=== PATIENT | female | born 1990 | race Caucasian/White ===

== ENCOUNTER 2020-12-29 15:15 | Outpatient (CLI) | payer OTHER, SELFPAY ==
--- NOTE | ~2020-12-29 | US_ITS ---
EXAMINATION: US pelvic complete w TV DATE: 12/29/2020 15:56 INDICATION: Uncertain location of IUD TECHNIQUE: Multiple transabdominal and endovaginal sonographic images of the pelvis were obtained. COMPARISON: None. FINDINGS: The uterus measures 7.4 x 3.7 x 5.5 cm. The IUD is in expected position. The endometrial co mplex measures 4 mm. The right ovary measures 2.0 x 0.9 x 0.7 cm. The left ovary measures 2.8 x 2.6 x 3.0 cm. There is normal vascular flow in the ovaries. There is no free fluid in the pelvis. IMPRESSION: 1. IUD in expected position. Reviewed, dictated and finalized at location A.
== END 2020-12-29 15:16 | disposition home or self-care (01) ==
PROVIDERS: Visit Provider Obstetrics & Gynecology
DX: Z30.431 Encounter for routine checking of intrauterine contraceptive device (principal)
CPT/HCPCS: 76830; 76856

== ENCOUNTER 2022-12-31 11:44 | Emergency (ER) | payer OTHER, SELFPAY ==
--- NOTE | ~2022-12-31 | XR_ITS ---
EXAMINATION: XR hand LT min 3V DATE: 12/31/2022 12:39 INDICATION: Left hand injury and pain. TECHNIQUE: 3 views of left hand were obtained. COMPARISON: None. FINDINGS: Bone alignment is normal. No fracture. Joint spaces are well maintained. IMPRESSION: 1. No fracture. Reviewed, dictated and finalized at location A. IMPRESSION: 1. No fracture.
[2022-12-31 12:16] VITALS: BP 124/74; PULSE 98; RESP 18; TEMP 36.5; O2SAT 100
--- NOTE | 2022-12-31 13:58 | PC.NURSE ---
Pt no longer wants to be seen by EDP due to wait time.
== END 2022-12-31 14:49 | disposition left against medical advice (07) ==
LOC: ANHED 14:06
PROVIDERS: Emergency Provider Emergency Medicine
DX: M79.642 Pain in left hand (principal)
CPT/HCPCS: 73130; 99199

== ENCOUNTER 2023-03-14 02:14 | Day surgery (SDC) | payer OTHER, SELFPAY ==
[2023-03-06 15:06] VITALS: BMI 24.7
--- NOTE | 2023-03-06 15:12 | PC.NURSE ---
Report to the Outpatient Waiting Room, entrance under the green pavilion located off [facility], at time 0900 on date 03/14/23. Planned Procedure Time: 1100. Time changes happen often and if your time is changed the preop area will call you the afternoon before. - You and your visitor will be asked to self-screen and do not enter if you have any COVID symptoms. - A mask is optional within the hospital at this time. Patients may have clear liquids (water, carbonated beverages, clear teas, apple juice) until 3 hours prior to surgery with a maximum of 20 ounces. - No food from midnight until time of surgery Take the following medications with a SIP of water the morning of surgery: SERTRALINE DO NOT STOP ANY OF YOUR OTHER PRESCRIPTION MEDICATIONS PRIOR TO SURGERY ?EXCEPT THE FOLLOWING Medications to discontinue per physician: N/A Date to take last dose: N/A Please no make-up, nail hebrew, hairspray, perfume, deodorant, or body powder the day of surgery. No jewelry (including any body piercings) or valuables the day of surgery, leave them at home. Please take a shower or bath the night before, or the morning of, surgery with an antibacterial soap. Wear comfortable, loose fitting clothing. - Jewelry must be removed prior to entering the operating room. Rings and piercings that are not removed may be cut off. - The hospital will not accept responsibility for valuables. - Please leave all valuables, including medications, at home the day of surgery. If you are going home after surgery, a licensed spike driver must drive you home. - NO public transportation without another adult if you receive anesthesia. - We recommend that an adult stay with you for 24 hours following discharge. - We also recommend that you do not drive, make important decision, drink alcoholic beverages, or take any drugs that were not prescribed by your health care provider for at least 24 hours after your discharge time. Follow any additional instructions given to you from your surgeon. If you or anyone in your household have experienced Covid symptoms in the past week, please notify your surgeon or the nurse liaison at the phone number below for possible testing. Telephone instructions given to PT - RK PEDERSON and asked if any additional questions and then verbalized understanding. Patient advised to call surgeon office or pre surgery nurse liaison [phone] if any additional questions.
--- NOTE | 2023-03-12 17:20 | PM.IMHP ---
H&P: HPI History of Present Illness Date/Time: 03/12/23 17:20 32-year-old female presents for LEEP conization. Over 20 years ago had abnormal Pap which LEEP resolved and her Pap smears have been normal since that time. Last year ascus questionable high-grade lesion, colposcopy did not confirm an ECC was negative. This year Pap does show high-grade lesion therefore will proceed with LEEP. Chief Complaint: HGSIL on Pap Review of Systems Review of Systems: All systems reviewed & are unremarkable except as noted in HPI and below PMFSH Past Medical History Medical History Abnormal Pap smear of cervix 01/13/2009-lgsil (+) hpv, 01/26/2010-LGSIL+HPV, 08/30/2010 Lgsil +hpv,10/22/2011- LGSIL, 09/24/2012 HGSIL Moderate dyplasia+hpv Anxiety and depression ASCUS with positive high risk HPV cervical History of anxiety History of depression HPV in female Irregular periods Migraines Overactive bladder Surgical History Surgical History H/O LEEP LEEP, dx laparoscopy-pelvic pain - Hsgil IVY 3 - HGSIL IVY 2 History of appendectomy History of colposcopy multiple HGSIL/ Mild dysplasia IVY 1 History of colposcopy (04/04/22) Hx of cholecystectomy Family History Family History Mother Hypertension Grandparent Family history of congestive heart failure Diabetes mellitus Social History Social History Smoking status: Current every day smoker Tobacco type: e-cigarettes/vaping Alcohol intake: former Drinks per week: 1 Alcohol use details: A FEW TIMES A WEEK, RECENTLY QUIT Substance use: current Substance use type: marijuana Other substance usage details: daily Current Housing: Decline to Answer Concerned About Future Housing: Decline to Answer Difficulty Paying Gas/Electric Bills: Decline to Answer Difficulty Paying for Meds: Decline to Answer Currently Unemployed: Decline to Answer Education: Decline to Answer Difficulty w/ Childcare or Family Care: Decline to Answer Living arrangements: with family Additional living arrangements comments: CHILDREN Occupation/Education: occupation 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 Gender identity (if verbalized by the patient): Female Sexual Orientation (if Verbalized by the Patient): Straight or Heterosexual Spiritual care concerns: No Meds Home Medications and Allergies Home Medications Medication Instructions Recorded Confirmed Type levonorgestrel 21 mcg/24 hours (8 1 device intrauterine ONCE 02/21/22 03/06/23 History yrs) 52 mg intrauterine device (Mirena) sertraline 100 mg tablet 100 mg PO DAILY 02/21/22 03/06/23 History Allergies Allergy/AdvReac Type Severity Reaction Status Date / Time No Known Allergies Allergy Verified 03/06/23 15:06 Exam Const: General: cooperative and healthy appearing Resp: Effort & Inspection: normal respiratory effort Auscultation: clear to auscultation bilaterally Cardio: Rate: regular rate Rhythm: regular rhythm GI: Inspection: normal to inspection Auscultation: normal bowel sounds : External Female Exam: normal external appearance Speculum Exam - Vagina: normal appearance of the vagina Speculum Exam - Cervix: abnormal appearance of the cervix ( transformation zone retracted) Bimanual exam- vagina & uterus: normal bimanual exam Bimanual Exam- Adnexa, other: normal adnexae Assessment and Plan Assessment and plan (1) HGSIL (high grade squamous intraepithelial lesion) on Pap smear of cervix: Code(s): R87.613 - High grade squamous intraepithelial lesion on cytologic smear of cervix (HGSIL) Status: Acute Plan proceed with LEEP conization
--- NOTE | 2023-03-13 14:30 | WPDANESEPPF ---
Anes - Initial Pre Proc Eval Procedure: Operation Date: 03/14/23 11:00 Proposed Procedures p Loop Electrical Excision Procedure - Leonard Andres MD Date/Time: 03/13/23 14:30 Surgeon: Leonard Andres MD Pre Op Diagnosis: Cervical Dysplasia Patient Data Age: 32 Gender: F Height: 1.57 m Weight: 61.25 kg Allergies Allergy/AdvReac Type Severity Reaction Status Date / Time No Known Allergies Allergy Verified 03/06/23 15:06 Home Medications Medication Instructions Recorded Confirmed Type levonorgestrel 21 mcg/24 hours (8 1 device intrauterine ONCE 02/21/22 03/06/23 History yrs) 52 mg intrauterine device (Mirena) sertraline 100 mg tablet 100 mg PO DAILY 02/21/22 03/06/23 History Patient hx anesthesia problems: none Family hx anesthesia problems: none Results Review: All pre-operative results and documents have been reviewed as part of the pre-operative evaluation. [facility] Past Medical History Medical History Abnormal Pap smear of cervix 01/13/2009-lgsil (+) hpv, 01/26/2010-LGSIL+HPV, 08/30/2010 Lgsil +hpv,10/22/2011- LGSIL, 09/24/2012 HGSIL Moderate dyplasia+hpv Anxiety and depression ASCUS with positive high risk HPV cervical History of anxiety History of depression HPV in female Irregular periods Migraines Overactive bladder Surgical History Surgical History H/O LEEP LEEP, dx laparoscopy-pelvic pain - Hsgil IVY 3 - HGSIL IVY 2 History of appendectomy History of colposcopy multiple HGSIL/ Mild dysplasia IVY 1 History of colposcopy (04/04/22) Hx of cholecystectomy Family History Family History Mother Hypertension Grandparent Family history of congestive heart failure Diabetes mellitus Social History Social History Smoking status: Current every day smoker Tobacco type: e-cigarettes/vaping Alcohol intake: former Drinks per week: 1 Alcohol use details: A FEW TIMES A WEEK, RECENTLY QUIT Substance use: current Substance use type: marijuana Other substance usage details: daily Current Housing: Decline to Answer Concerned About Future Housing: Decline to Answer Difficulty Paying Gas/Electric Bills: Decline to Answer Difficulty Paying for Meds: Decline to Answer Currently Unemployed: Decline to Answer Education: Decline to Answer Difficulty w/ Childcare or Family Care: Decline to Answer Living arrangements: with family Additional living arrangements comments: CHILDREN Occupation/Education: occupation 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 Gender identity (if verbalized by the patient): Female Sexual Orientation (if Verbalized by the Patient): Straight or Heterosexual Spiritual care concerns: No Anes - Eval Final PreProcedure Day of Procedure 03/13/23 14:30 Patient weight: normal Heart: regular rate and rhythm Lungs: clear to auscultation and normal air movement Airway: Mallampati scale class II Neurological: alert and oriented Last oral intake: >/= 8 hours ASA classification: III Emergent: no Anesthetic plan: proceed Anesthesia type and monitoring: general GIVS and standard monitoring Results Review: All pre-operative results and documents have been reviewed as part of the pre-operative evaluation. Informed Consent: The patient's anesthetic plan and its attendant risks and benefits were discussed with the patient/family/POA. Questions were solicited and answers provided to the satisfaction of the patient/family/POA.
--- NOTE | 2023-03-14 08:29 | WPDHPUPDATE1 ---
History and Physical Update Update Date/Time: 03/14/23 08:29 History and Physical has been reviewed, including an updated exam of the patient. There are NO changes in the patient's condition. Risks, benefits, and alternatives have been discussed and questions answered. Patient agrees to proceed with procedure.
[2023-03-14 09:24] VITALS: BP 105/69; PULSE 74; RESP 16; TEMP 37.2; O2SAT 100
[2023-03-14] MEDS: ACETAMINOPHEN 500 MG TABLET 1000 MG PO (09:58)
[2023-03-14] MEDS: LACTATED RINGERS 1,000 ML 30 ML IV CONT (10:00)
[2023-03-14 10:19] LABS: Hemoglobin 13.6 g/dL (12.0-15.0); Mean Corpuscular HGB Conc 32.4 g/dl (32-36); Mean Corpuscular Hemoglobin 30.1 pg (26-34); Mean Corpuscular Volume 92.9 fl (80-100); Mean Platelet Volume 11.6 fl (7.4-10.4); Platelet Count Result 344 k/mm3 (150-375); Red Blood Count 4.52 M/mm3 (4.2-5.4); Red Cell Distribution Width 11.8 % (11.5-14.5)
--- NOTE | 2023-03-14 11:22 | W.PM.PROC2 ---
Procedure Note - Detailed Date of Procedure 03/14/23 Pre-op Diagnosis 1. HGSIL 2. Prior LEEP Post-op Diagnosis Same Procedure Performed LEEP Surgeon Leonard Andres MD Anesthesia MAC Findings Retracted transformation zone Description of Procedure Patient prepped and draped in usual manner for this procedure. Lugol's solution was used to delineate the transformation zone, and this was poorly done as it was retracted. Medium LEEP instrument was obtained an ectocervical portion of our specimen was removed. Endocervical specimen then removed with good hemostasis. Further cautery to be certain there was no further bleeding was undertaken. At this point the procedure was considered terminated and the patient was sent to recovery room in stable condition Estimated Blood Loss 20 Drains No Packing No Pathology Yes Complications No immediate complications Condition Stable Disposition PACU [facility] Billing Surgery - Charge Forward: Surgery Billing
[2023-03-14 11:30] VITALS: BP 88/53; PULSE 84; RESP 13; O2SAT 97
[2023-03-14 12:00] VITALS: BP 110/70; PULSE 60; RESP 12; O2SAT 99
[2023-03-14] MEDS: fentaNYL CITRATE INJ (*CRX) 100 MCG/2 ML VIAL 25 MCG IV PUSH ×2 (12:00→12:03)
[2023-03-14 12:15] VITALS: BP 100/58; PULSE 48; RESP 12
[2023-03-14 12:45] VITALS: BP 111/60; PULSE 48; RESP 20
== END 2023-03-14 12:54 | disposition home or self-care (01) ==
PROVIDERS: Visit Provider Obstetrics & Gynecology
PROC: 0UBC7ZZ Excision of Cervix, Via Natural or Artificial Opening (ICD-10-PCS; CPT 57522; principal; 2023-03-14 11:00)
DX: R87.613 High grade squamous intraepithelial lesion on cytologic smear of cervix (HGSIL) (principal); R87.810 Cervical high risk human papillomavirus (HPV) DNA test positive; F41.8 Other specified anxiety disorders; F17.290 Nicotine dependence, other tobacco product, uncomplicated; F12.90 Cannabis use, unspecified, uncomplicated
CPT/HCPCS: 57522; 36415; 85027; 88307; A9270; J1100; J2250; J2405; J2704; J3010; J7120

== ENCOUNTER 2023-03-27 12:53 | Day surgery (SDC) | payer OTHER, SELFPAY ==
[2023-03-27] VITALS (10 sets, daily range): BP systolic 95–117; BP diastolic 58–85; PULSE 62–90; RESP 10–19; TEMP 36.2–36.8; O2SAT 95–100
--- NOTE | 2023-03-27 13:20 | ED.GENADULT ---
HPI - General Adult General Chief complaint: Vaginal Bleeding Stated complaint: leep proc 03/14- now bleeding Time Seen by Provider: 03/27/23 13:00 History of Present Illness HPI narrative: 32-year-old female present to ED for evaluation for vaginal bleeding. Patient had a biopsy 03/14 and just noticed vaginal bleeding with large clots that started approximately 30 to 40 minutes prior to arrival. Patient called [facility] office and she was referred to the emergency department. Related Data Home Medications Medication Instructions Recorded Confirmed levonorgestrel 21 mcg/24 hours (8 1 device intrauterine ONCE 02/21/22 03/14/23 yrs) 52 mg intrauterine device (Mirena) sertraline 100 mg tablet 100 mg PO DAILY 02/21/22 03/14/23 Allergies Allergy/AdvReac Type Severity Reaction Status Date / Time No Known Allergies Allergy Verified 03/27/23 17:56 Review of Systems Review of Systems: All systems reviewed & are unremarkable except as noted in HPI and below PMFSH Past Medical History Medical History Abnormal Pap smear of cervix 01/13/2009-lgsil (+) hpv, 01/26/2010-LGSIL+HPV, 08/30/2010 Lgsil +hpv,10/22/2011- LGSIL, 09/24/2012 HGSIL Moderate dyplasia+hpv Anxiety and depression ASCUS with positive high risk HPV cervical History of anxiety History of depression HPV in female Irregular periods Migraines Overactive bladder Surgical History Surgical History H/O LEEP LEEP, dx laparoscopy-pelvic pain - Hsgil IVY 3 - HGSIL IVY 2 History of appendectomy History of colposcopy multiple HGSIL/ Mild dysplasia IVY 1 History of colposcopy (04/04/22) Hx of cholecystectomy Family History Family History Mother Hypertension Grandparent Family history of congestive heart failure Diabetes mellitus Social History Social History Smoking status: Current every day smoker Tobacco type: e-cigarettes/vaping Alcohol intake: former Drinks per week: 1 Alcohol use details: A FEW TIMES A WEEK, RECENTLY QUIT Substance use: current Substance use type: marijuana Other substance usage details: daily Current Housing: Decline to Answer Concerned About Future Housing: Decline to Answer Difficulty Paying Gas/Electric Bills: Decline to Answer Difficulty Paying for Meds: Decline to Answer Currently Unemployed: Decline to Answer Education: Decline to Answer Difficulty w/ Childcare or Family Care: Decline to Answer Living arrangements: with family Additional living arrangements comments: CHILDREN Occupation/Education: occupation 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 HEAD: normocephalic, atraumatic. EYES: PERRLA/EOMI, conjunctivae clear. NOSE: Normal no drainage NECK: Supple. No adenopathy, no masses. RESPIRATORY: Airway patent, respirations nonlabored. Clear to auscultation bilaterally, no rales, rhonchi, wheezing. CARDIOVASCULAR: Regular rate and rhythm without murmurs rubs or gallops. ABDOMINAL: Soft, nontender, nondistended, normal bowel sounds Pelvic exam: Patient did have refilling of the vaginal vault after clearing out clots. MUSCULOSKELETAL: Moves all extremities. Strength/ROM intact, No edema, No calf tenderness. NEURO: Alert. Cranial nerves II through XII intact. Good gait. Good coordination SKIN: Warm, dry. Normal Color Course Course Emergency Course: 32-year-old female presented ED for evaluation of vaginal bleeding that began worsening 30 to 40 minutes prior to arrival. Patient states since the bleeding began she has pas
[2023-03-27] MEDS: HYDROmorphone HCL INJ (*CRX) 1 MG/ML SYR 0.5 MG IV PUSH ×2 (13:58→16:59)
[2023-03-27] MEDS: SODIUM CHLORIDE 0.9% IV 1,000 ML 999 ML IV CONT (13:58)
[2023-03-27 14:01] LABS: Basophils Percent Auto 0.3 % (0.2-1.2); Eosinophils Absolute Auto 0.1 K/mm3 (0-0.3); Eosinophils Percent Auto 0.8 % (0-4.4); Hematocrit 39.7 % (37.0-47.0); Hemoglobin 13.1 g/dL (12.0-15.0); Immature Granulocyte Absolute 0.05 K/mm3 (0.00-0.031); Immature Granulocyte Percent A 0.4 % (0-0.5); Lymphocytes Absolute Auto 2.27 K/mm3 (0.9-3.2); Lymphocytes Percent Auto 17.4 % (18.3-44.2); Mean Corpuscular Volume 91.1 fl (80-100); Mean Platelet Volume 11.9 fl (7.4-10.4); Monocytes Absolute Auto 0.5 K/mm3 (0.1-0.6); Neutrophils Absolute Auto 10.1 K/mm3 (1.3-6.7); Neutrophils Percent Auto 77.1 % (45.5-73.1); Platelet Count Result 371 k/mm3 (150-375); Red Blood Count 4.36 M/mm3 (4.2-5.4); Red Cell Distribution Width 11.7 % (11.5-14.5); White Blood Count 13.1 K/mm3 (4.5-10.0)
[2023-03-27 14:09] LABS: Alanine Aminotransferase 96 U/L (6-35); Albumin Level 4.2 g/dL (3.5-5.1); Alkaline Phosphatase 73 U/L (38-126); Anion Gap 5 mmol/L (8-16); Aspartate Amino Transferase 49 U/L (14-36); Bilirubin,Total 0.7 mg/dL (0.2-1.3); Blood Urea Nitrogen 8 mg/dL (7-17); Calcium 8.7 mg/dL (8.4-10.2); Carbon Dioxide 26 mmol/L (22-30); Chloride 105 mmol/L (98-107); Estimated CRCL calculation 70 ml/min; Estimated Glomerular Filt Rate > 60; Glucose 76 mg/dL (65-110); Potassium 3.4 mmol/L (3.4-5.0); Prothrombin Time 13.3 Seconds (11.1-14.7); Sodium 136 mmol/L (137-145)
[2023-03-27 14:10] LABS: Partial Thromboplastin Time 31.9 SECONDS (22.3-36.8)
--- NOTE | 2023-03-27 14:33 | WPDCN ---
Assessment and Plan Assessment and plan (1) Vaginal bleeding: Code(s): N93.9 - Abnormal uterine and vaginal bleeding, unspecified Status: Acute Assessment and Plan: 32-year-old female who presents to the emergency room with acute onset vaginal bleeding Patient reports retractable vaginal bleeding since this morning Patient underwent LEEP procedure for surgical dysplasia on 03/14/2023 Vaginal exam shows brisk bleeding from the cervical LEEP surgical bed Vaginal vault cleared of clot Silver nitrate and Monsel solution applied to the surgical bed for hemostasis Will admit star 1 g IV TXA Will continue to monitor bleeding If bleeding persists, will consider cautery under anesthesia for management of acute vaginal bleeding HPI Data of Consult Date/Time: 03/27/23 14:33 Primary Care Provider: PHYSICIAN NOT ON STAFF Consult Narrative Reason for consult: Vaginal bleeding Narrative: Marce Guido is a 32 year old female presents to the ER this morning for acute onset vaginal bleeding. Patient underwent a LEEP procedure approximately 2 weeks ago. Patient reported some cramping postop but denied any bleeding. Patient states this morning she was sitting in the truck when she had acute onset bleeding. Patient states she has had persistent bleeding since it started. Patient states she soaking through clothing and pads in the emergency room. Patient reports continued cramping pain. Patient states she has an IUD in place. Patient states she reports mostly amenorrhea but will have occasional light menses. Patient reports last menstrual bleeding was 2 weeks ago. Urine test is negative. Patient has not had any intercourse since her LEEP procedure. Review of Systems Review of Systems: All systems reviewed & are unremarkable except as noted in HPI and below PMFSH Past Medical History Medical History Abnormal Pap smear of cervix 01/13/2009-lgsil (+) hpv, 01/26/2010-LGSIL+HPV, 08/30/2010 Lgsil +hpv,10/22/2011- LGSIL, 09/24/2012 HGSIL Moderate dyplasia+hpv Anxiety and depression ASCUS with positive high risk HPV cervical History of anxiety History of depression HPV in female Irregular periods Migraines Overactive bladder Surgical History Surgical History H/O LEEP LEEP, dx laparoscopy-pelvic pain - Hsgil IVY 3 - HGSIL IVY 2 History of appendectomy History of colposcopy multiple HGSIL/ Mild dysplasia IVY 1 History of colposcopy (04/04/22) Hx of cholecystectomy Family History Family History Mother Hypertension Grandparent Family history of congestive heart failure Diabetes mellitus Social History Social History Smoking status: Current every day smoker Tobacco type: e-cigarettes/vaping Alcohol intake: former Drinks per week: 1 Alcohol use details: A FEW TIMES A WEEK, RECENTLY QUIT Substance use: current Substance use type: marijuana Other substance usage details: daily Current Housing: Decline to Answer Concerned About Future Housing: Decline to Answer Difficulty Paying Gas/Electric Bills: Decline to Answer Difficulty Paying for Meds: Decline to Answer Currently Unemployed: Decline to Answer Education: Decline to Answer Difficulty w/ Childcare or Family Care: Decline to Answer Living arrangements: with family Additional living arrangements comments: CHILDREN Occupation/Education: occupation 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
[2023-03-27] MEDS: TRANEXAMIC ACID 1,000 MG/10 ML AMPUL 1000 MG (14:53)
[2023-03-27] MEDS: SODIUM CHLORIDE 0.9% IV 50 ML 100 ML (15:02)
--- NOTE | 2023-03-27 17:01 | PM.IMHP ---
H&P: HPI History of Present Illness Date/Time: 03/27/23 17:01 Chief Complaint: vaginal bleeding Narrative: Marce Guido is a 32 year old female? presents to the ER this morning for acute onset vaginal bleeding.? Patient underwent a LEEP procedure approximately 2 weeks ago.? Patient reported some cramping postop but denied any bleeding.? Patient states this morning she was sitting in the truck when she had acute onset bleeding.? Patient states she has had persistent bleeding since it started.? Patient states she soaking through clothing and pads in the emergency room.? Patient reports continued cramping pain.? Patient states she has an IUD in place.? Patient states she reports mostly amenorrhea but will have occasional light menses.? Patient reports last menstrual bleeding was 2 weeks ago.? Urine test is negative.? Patient has not had any intercourse since her LEEP procedure. Review of Systems Cardiovascular: Cardiovascular: Denies chest pain, Denies leg edema, Denies palpitations, Denies dyspnea and Denies dyspnea on exertion Respiratory: Respiratory: Denies cough, Denies dyspnea and Denies dyspnea on exertion Gastrointestinal: Gastrointestinal: Denies abdominal pain, Denies constipation, Denies diarrhea, Denies nausea and Denies vomiting Genitourinary: Genitourinary: Denies hematuria, Denies urinary frequency, Denies dysuria, Denies pelvic pain, Denies urinary incontinence and Denies vaginal discharge Neurologic: Reports system reviewed and no additional complaints, except as documented Psychiatric: Psychiatric: Reports no additional psychiatric complaints Endocrine: Endocrine: Denies palpitations PMFSH Past Medical History Medical History Abnormal Pap smear of cervix 01/13/2009-lgsil (+) hpv, 01/26/2010-LGSIL+HPV, 08/30/2010 Lgsil +hpv,10/22/2011- LGSIL, 09/24/2012 HGSIL Moderate dyplasia+hpv Anxiety and depression ASCUS with positive high risk HPV cervical History of anxiety History of depression HPV in female Irregular periods Migraines Overactive bladder Surgical History Surgical History H/O LEEP LEEP, dx laparoscopy-pelvic pain - Hsgil IVY 3 - HGSIL IVY 2 History of appendectomy History of colposcopy multiple HGSIL/ Mild dysplasia IVY 1 History of colposcopy (04/04/22) Hx of cholecystectomy Family History Family History Mother Hypertension Grandparent Family history of congestive heart failure Diabetes mellitus Social History Social History Smoking status: Current every day smoker Tobacco type: e-cigarettes/vaping Alcohol intake: former Drinks per week: 1 Alcohol use details: A FEW TIMES A WEEK, RECENTLY QUIT Substance use: current Substance use type: marijuana Other substance usage details: daily Current Housing: Decline to Answer Concerned About Future Housing: Decline to Answer Difficulty Paying Gas/Electric Bills: Decline to Answer Difficulty Paying for Meds: Decline to Answer Currently Unemployed: Decline to Answer Education: Decline to Answer Difficulty w/ Childcare or Family Care: Decline to Answer Living arrangements: with family Additional living arrangements comments: CHILDREN Occupation/Education: occupation 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
[2023-03-27] MEDS: LACTATED RINGERS 1,000 ML 30 ML IV CONT (17:20)
--- NOTE | 2023-03-27 17:44 | WPDANESEPPF ---
Anes - Initial Pre Proc Eval Procedure: Operation Date: 03/27/23 18:00 Proposed Procedures p Cautery Of Vaginal Lesion - John Lincoln MD Date/Time: 03/27/23 17:44 Surgeon: John Lincoln MD Pre Op Diagnosis: leep proc 03/14- now bleeding Patient Data Age: 32 Gender: F Height: 1.57 m Weight: 61.24 kg Last Vital Signs Temp 36.6 C 03/27/23 12:55 Pulse 70 03/27/23 16:55 Resp 16 03/27/23 16:55 BP 98/61 L 03/27/23 16:55 Pulse Ox 100 03/27/23 16:55 O2 Del Method Room Air 03/27/23 12:55 Allergies Allergy/AdvReac Type Severity Reaction Status Date / Time No Known Allergies Allergy Verified 03/14/23 10:48 Home Medications Medication Instructions Recorded Confirmed Type levonorgestrel 21 mcg/24 hours (8 1 device intrauterine ONCE 02/21/22 03/14/23 History yrs) 52 mg intrauterine device (Mirena) sertraline 100 mg tablet 100 mg PO DAILY 02/21/22 03/14/23 History ibuprofen 800 mg tablet 800 mg PO TID PRN pain #30 tabs 03/14/23 Rx oxycodone-acetaminophen 5 mg-325 1 tablet PO Q6H PRN pain #10 tabs 03/14/23 Rx mg tablet Laboratory Tests 03/27/23 13:50 WBC 13.1 H K/mm3 (4.5-10.0) RBC 4.36 M/mm3 (4.2-5.4) Hgb 13.1 g/dL (12.0-15.0) Hct 39.7 % (37.0-47.0) MCV 91.1 fl (80-100) MCH 30.0 pg (26-34) MCHC 33.0 g/dl (32-36) RDW 11.7 % (11.5-14.5) Plt Count 371 k/mm3 (150-375) MPV 11.9 H fl (7.4-10.4) Immature Gran % (Auto) 0.4 % (0-0.5) Neut % (Auto) 77.1 H % (45.5-73.1) Lymph % (Auto) 17.4 L % (18.3-44.2) [place] % (Auto) 4.0 % (2.6-8.5) Eos % (Auto) 0.8 % (0-4.4) Baso % (Auto) 0.3 % (0.2-1.2) Lymph # (Auto) 2.27 K/mm3 (0.9-3.2) [place] # (Auto) 0.5 K/mm3 (0.1-0.6) Eos # (Auto) 0.1 K/mm3 (0-0.3) Baso # (Auto) 0.0 K/mm3 (0.0-0.1) Abs Immat Gran (auto) 0.05 H K/mm3 (0.00-0.031) Absolute Neuts (auto) 10.1 H K/mm3 (1.3-6.7) Absolute Nucleated RBC 0.0 K/mm3 (0.0-0.012) Nucleated RBC % 0.0 % (0.0-0.2) PT 13.3 Seconds (11.1-14.7) INR 1.0 APTT 31.9 SECONDS (22.3-36.8) Sodium 136 L mmol/L (137-145) Potassium 3.4 mmol/L (3.4-5.0) Chloride 105 mmol/L (98-107) Carbon Dioxide 26 mmol/L (22-30) Anion Gap 5 L mmol/L (8-16) BUN 8 mg/dL (7-17) Creatinine 0.80 mg/dL (0.7-1.0) Estim Creat Clear Calc 70 ml/min Estimated GFR > 60 (59 - ) Glucose 76 mg/dL (65-110) Calcium 8.7 mg/dL (8.4-10.2) Total Bilirubin 0.7 mg/dL (0.2-1.3) AST 49 H U/L (14-36) ALT 96 H U/L (6-35) Alkaline Phosphatase 73 U/L (38-126) Total Protein 7.0 g/dL (6.3-8.2) Albumin 4.2 g/dL (3.5-5.1) Blood Type O Positive Antibody Screen Negative Patient hx anesthesia problems: none Family hx anesthesia problems: none Results Review: All pre-operative results and documents have been reviewed as part of the pre-operative evaluation. [facility] Past Medical History Medical History Abnormal Pap smear of cervix 01/13/2009-lgsil (+) hpv, 01/26/2010-LGSIL+HPV, 08/30/2010 Lgsil +hpv,10/22/2011- LGSIL, 09/24/2012 HGSIL Moderate dyplasia+hpv Anxiety and depression ASCUS with positive high risk HPV cervical History of anxiety History of depression HPV in female Irregular periods Migraines Overactive bladder Surgical History Surgical History H/O LEEP LEEP, dx laparoscopy-pelvic pain - Hsgil IVY 3 - HGSIL IVY 2 History of appendectomy History of colposcopy multiple HGSIL/ Mild dysplasia IVY 1 History of colposcopy (04/04/22) Hx of cholecystectomy Family History Family History Mother Hypertension Grandparent Family history of congestive heart failure Diabetes mellitus Social History Social
[2023-03-27] MEDS: FAMOTIDINE 20 MG/2 ML VIAL IV PUSH (17:54)
[2023-03-27] MEDS: ONDANSETRON INJ 4 MG/2 ML VIAL IV PUSH (17:55)
--- NOTE | 2023-03-27 19:04 | SUR.PREOP ---
per RN Sarah pt was unable to void for a test. ok to proceed with surgery due to it being emergent per robson. This nurse changed pt saturated peripad and started a second bag of LR due to the second bag finished.
--- NOTE | 2023-03-27 19:34 | W.PM.PROC2 ---
Procedure Note - Detailed Date of Procedure 03/27/23 Pre-op Diagnosis Vaginal bleeding leep proc 03/14- now bleeding Post-op Diagnosis Same Procedure Performed cauterization of cervical lesion Surgeon John Lincoln MD Anesthesia Other ( IV sedation) Indications vaginal bleeding status post LEEP Findings cervical surgical bed status post LEEP acutely bleeding Description of Procedure PROCEDURE: The patient was taken to the OR and general anesthesia induced. She was prepped and draped in Yellow-fin stirrups with good support of the back and bilateral lower extremities. coated bivalve speculum was placed for visualization of the cervix. Vaginal vault was noted to be full of clot. Blood clots were removed from the vaginal vault. Ball cautery was used throughout the surgical bed. Bovie settings were at 60/60 good hemostasis was obtained with Bovie cautery. Monsel's solution was placed on surgical bed. Surgical site was observed good hemostasis was noted. Procedure was then ended. The patient was taken to the recovery room in stable condition. Estimated Blood Loss 15 Drains No Packing No Pathology None sent Complications No immediate complications Condition Stable Disposition PACU [facility] Billing Surgery - Charge Forward: Surgery Billing
[2023-03-27] MEDS: fentaNYL CITRATE INJ (*CRX) 100 MCG/2 ML VIAL 25 MCG IV PUSH ×6 (19:48→20:24)
--- NOTE | 2023-03-27 20:38 | PC.NURSE ---
Patient transferred to post room #286 via (Stretcher). Support person present. Oriented to unit, room, information board, rooming in, admission packet and security measures. Patient verbalizes understanding.
[2023-03-27] MEDS: HYDROcodone/acetaminophen (*CRX) 5-325 MG TABLET 1 TAB PO (21:16)
[2023-03-27] MEDS: IBUPROFEN 600 MG TABLET PO (21:16)
[2023-03-28 00:20] VITALS: BP 87/51; PULSE 78; RESP 16; TEMP 37; O2SAT 97
[2023-03-28] MEDS: HYDROcodone/acetaminophen (*CRX) 5-325 MG TABLET 1 TAB PO ×3 (00:26→07:27)
[2023-03-28] MEDS: IBUPROFEN 600 MG TABLET PO (04:47)
[2023-03-28 05:00] VITALS: BP 83/51; PULSE 60; RESP 16; TEMP 36.7; O2SAT 100
[2023-03-28 05:48] LABS: Basophils Absolute Auto 0.1 K/mm3 (0.0-0.1); Basophils Percent Auto 0.4 % (0.2-1.2); Eosinophils Absolute Auto 0.2 K/mm3 (0-0.3); Eosinophils Percent Auto 1.1 % (0-4.4); Hematocrit 32.5 % (37.0-47.0); Hemoglobin 10.3 g/dL (12.0-15.0); Immature Granulocyte Absolute 0.05 K/mm3 (0.00-0.031); Immature Granulocyte Percent A 0.4 % (0-0.5); Lymphocytes Absolute Auto 3.18 K/mm3 (0.9-3.2); Lymphocytes Percent Auto 22.8 % (18.3-44.2); Mean Corpuscular HGB Conc 31.7 g/dl (32-36); Mean Corpuscular Hemoglobin 29.9 pg (26-34); Mean Corpuscular Volume 94.5 fl (80-100); Mean Platelet Volume 12.3 fl (7.4-10.4); Monocytes Absolute Auto 0.5 K/mm3 (0.1-0.6); Monocytes Percent Auto 3.7 % (2.6-8.5); Neutrophils Percent Auto 71.6 % (45.5-73.1); Platelet Count Result 319 k/mm3 (150-375); Red Blood Count 3.44 M/mm3 (4.2-5.4); Red Cell Distribution Width 11.7 % (11.5-14.5)
[2023-03-28 07:30] VITALS: BP 90/52; PULSE 72; RESP 16; TEMP 36.7; O2SAT 100
--- NOTE | 2023-03-28 08:14 | PM.DS ---
DS: Admitting Diagnosis Discharge Date 03/28/23 Admitting Diagnosis vaginal bleeding s/p LEEP DS: Discharge Diagnosis Discharge Diagnosis (1) Vaginal bleeding: Code(s): N93.9 - Abnormal uterine and vaginal bleeding, unspecified Status: Acute DS: Summary Hospital Course Hospital Course: a 32 female who presented to the emergency room with acute onset vaginal bleeding. Patient was status post LEEP procedure. vaginal bleeding was refractory to Monsel solution and silver nitrate. Decision was made to proceed to the operating room for cauterization of cervical lesion. Time Spent with Patient Time attestation: Total time spent providing and/or coordinating discharge services: Exam Const: General: cooperative, healthy appearing, comfortable and no acute distress Resp: Effort & Inspection: normal respiratory effort and able to speak in complete sentences Cardio: Rate: regular rate Rhythm: regular rhythm GI: Inspection: normal to inspection GI Palp: No abdominal tenderness and Yes Soft to palpation DS: Data Data Completed and Pending Labs on day of discharge: Labs from last 24 hours 03/28/23 03/27/23 04:32 13:50 WBC 14.0 H 13.1 H RBC 3.44 L 4.36 Hgb 10.3 L 13.1 Hct 32.5 L 39.7 MCV 94.5 91.1 MCH 29.9 30.0 MCHC 31.7 L 33.0 RDW 11.7 11.7 Plt Count 319 371 MPV 12.3 H 11.9 H Immature Gran % (Auto) 0.4 0.4 Neut % (Auto) 71.6 77.1 H Lymph % (Auto) 22.8 17.4 L [place] % (Auto) 3.7 4.0 Eos % (Auto) 1.1 0.8 Baso % (Auto) 0.4 0.3 Lymph # (Auto) 3.18 2.27 [place] # (Auto) 0.5 0.5 Eos # (Auto) 0.2 0.1 Baso # (Auto) 0.1 0.0 Abs Immat Gran (auto) 0.05 H 0.05 H Absolute Neuts (auto) 10.0 H 10.1 H Absolute Nucleated RBC 0.0 0.0 Nucleated RBC % 0.0 0.0 PT 13.3 INR 1.0 APTT 31.9 Sodium 136 L Potassium 3.4 Chloride 105 Carbon Dioxide 26 Anion Gap 5 L BUN 8 Creatinine 0.80 Estim Creat Clear Calc 70 Estimated GFR > 60 Glucose 76 Calcium 8.7 Total Bilirubin 0.7 AST 49 H ALT 96 H Alkaline Phosphatase 73 Total Protein 7.0 Albumin 4.2 Blood Type O Positive Antibody Screen Negative Discharge Plan Discharge Patient Disposition: Home, Self-Care Stand Alone Forms: General Discharge Instructions Follow-up/Referrals: PHYSICIAN NOT ON STAFF,NONSTAFF [Primary Care Provider] - John Lincoln MD [Physician] - Discharge Medications: Continued Mirena 20 mcg/24 hours (7 yrs) 52 mg intrauterine device 1 device intrauterine ONCE Rx Instructions: as a single dose sertraline 100 mg tablet 100 mg PO DAILY oxycodone-acetaminophen 5-325 mg tablet 1 tablet PO Q6H PRN (Reason: pain) Qty: 10 0RF ibuprofen 800 mg tablet 800 mg PO TID PRN (Reason: pain) Qty: 30 0RF
--- NOTE | 2023-03-28 08:46 | WPDANESPN ---
Anes - Prog Note Post-Op Date/Time: 03/28/23 08:46 Cardiovascular status: normal Respiratory status: normal Airway patency: baseline Mental status: baseline Post-Op hydration status: normal Vital Signs: Last Vital Signs Temp 98.1 F 03/28/23 05:00 Pulse 60 03/28/23 05:00 Resp 16 03/28/23 05:00 BP 83/51 L 03/28/23 05:00 Pulse Ox 100 03/28/23 05:00 O2 Del Method Room Air 03/27/23 20:20 O2 Flow Rate 10 03/27/23 19:50 Pain Score (VAS): 0 I/O: Intake & Output 03/27/23 03/28/23 03/28/23 23:59 07:59 15:59 Intake Total 400 Output Total 500 Balance 400 -500 Laboratory Tests 03/28/23 04:32 03/27/23 13:50 03/27/23 03/28/23 13:50 04:32 WBC 13.1 H 14.0 H RBC 4.36 3.44 L Hgb 13.1 10.3 L Hct 39.7 32.5 L MCV 91.1 94.5 MCH 30.0 29.9 MCHC 33.0 31.7 L RDW 11.7 11.7 Plt Count 371 319 MPV 11.9 H 12.3 H Immature Gran % (Auto) 0.4 0.4 Neut % (Auto) 77.1 H 71.6 Lymph % (Auto) 17.4 L 22.8 [place] % (Auto) 4.0 3.7 Eos % (Auto) 0.8 1.1 Baso % (Auto) 0.3 0.4 Lymph # (Auto) 2.27 3.18 [place] # (Auto) 0.5 0.5 Eos # (Auto) 0.1 0.2 Baso # (Auto) 0.0 0.1 Abs Immat Gran (auto) 0.05 H 0.05 H Absolute Neuts (auto) 10.1 H 10.0 H Absolute Nucleated RBC 0.0 0.0 Nucleated RBC % 0.0 0.0 PT 13.3 INR 1.0 APTT 31.9 Sodium 136 L Potassium 3.4 Chloride 105 Carbon Dioxide 26 Anion Gap 5 L BUN 8 Creatinine 0.80 Estim Creat Clear Calc 70 Estimated GFR > 60 Glucose 76 Calcium 8.7 Total Bilirubin 0.7 AST 49 H ALT 96 H Alkaline Phosphatase 73 Total Protein 7.0 Albumin 4.2 Blood Type O Positive Antibody Screen Negative Post-procedural complaints: none Patient Feedback: Patient satisfied with anesthetic care.
--- NOTE | 2023-03-28 10:10 | PC.NURSE ---
1010 Pt given discharge instructions, RN printed LEEP d/c instructions since pt had that procedure on 03/14/23 and post operative bleeding. No discharge instructions available for cervical bleeding. Pt understands.
--- NOTE | 2023-03-28 11:09 | PC.NURSE ---
1050 Pt called and her prescriptions had not been sent to her pharmacy, RN checked and no Rx was sent because the medications just said continued as if she still had the medications. Per pt she had the Ibuprofen and Pioneer from her last procedure on 03/14/23 but was out of them. [address] Andres and he will send in her prescriptions to her preferred pharmacy listed in the computer, [facility] in [place] [facility], RN confirmed pharmacy with pt. RN called pt to let her know.
== END 2023-03-28 10:16 | disposition home or self-care (01) ==
LOC: ANHED 16:46 → ANHSURGERY 16:59 → ANHOB2 20:34
PROVIDERS: Emergency Provider Emergency Medicine; Visit Provider Student in an Organized Health Care Education/Training Program
PROC: (CPT 57510; principal; 2023-03-27 18:00)
DX: N99.820 Postprocedural hemorrhage of a genitourinary system organ or structure following a genitourinary system procedure (principal); Y83.8 Other surgical procedures as the cause of abnormal reaction of the patient, or of later complication, without mention of misadventure at the time of the procedure; F17.290 Nicotine dependence, other tobacco product, uncomplicated; F12.90 Cannabis use, unspecified, uncomplicated; F41.8 Other specified anxiety disorders
CPT/HCPCS: 57510; 36415; 80053; 85025; 85610; 85730; 86850; 86900; 86901; 96361; 96374; 99199; 99285; A9270; J1170; J2250; J2405; J2704; J3010; J7030; J7120

== ENCOUNTER 2023-08-21 18:23 | Emergency (ER) | payer OTHER, SELFPAY ==
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
[2023-08-21 18:32] VITALS: BP 118/76; PULSE 75; RESP 16; TEMP 36.9; O2SAT 100
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
== END 2023-08-21 19:25 | disposition home or self-care (01) ==
PROVIDERS: Emergency Provider Nurse Practitioner
DX: S62.633A Displaced fracture of distal phalanx of left middle finger, initial encounter for closed fracture (principal); F41.9 Anxiety disorder, unspecified; F32.A Depression, unspecified; Z79.899 Other long term (current) drug therapy; F17.290 Nicotine dependence, other tobacco product, uncomplicated; Y04.0XXA Assault by unarmed brawl or fight, initial encounter
CPT/HCPCS: 29130; 73130; 99214; G0463

== ENCOUNTER 2024-09-21 09:00 | Outpatient (CLI) | payer OTHER, SELFPAY ==
--- NOTE | ~2024-09-21 | MMUS_ITS ---
EXAMINATION: MM diagnostic philomena BI w daniele, US breast BI complete HISTORY: Palpable bilateral breast lumps. TECHNIQUE: Additional 3-D tomosynthesis images of the breasts were performed and synthetic 2-D images were generated. CAD analysis was submitted and interpreted. High resolution bilateral complete breas t ultrasound was performed. COMPARISON: None BREAST PARENCHYMAL COMPOSITION: Dense: The breasts are heterogeneously dense, which may obscure small masses FINDINGS: MAMMOGRAPHIC FINDINGS: There are no suspicious masses, calcifications or architectural distortion in either breast to sugges t malignancy. ULTRASOUND: Complete US of all 4 quadrants of the breast/s and retroareolar region was reviewed. Normal heterogen eous echotexture without focal solid or cystic mass. IMPRESSION: 1. No evidence for malignancy in either breast. 2. Routine yearly screening mammogram and regular clinical breast examination are recommended. BI-RADS Category 1: Negative Reviewed, dictated and finalized at location B. NTEER SERVICES MANAGER IMPRESSION: 1. No evidence for malignancy in either breast. 2. Routine yearly screening mammogram and regular clinical breast examination a re recommended. BI-RADS Category 1: Negative
--- OUTSIDE RECORDS SUMMARY | 2024-09-21 09:25 | XMS_ITS | Clinical Summary ---
Author Organization [facility] Address [facility] [place] [address] Care Team Providers Care Fire Coordinator Name Role Phone Unavailable Primary Care Provider Unavailabl e Social History Tobacco Use Types Packs/Day Years Used Date Smoking Tobacco: Never Assessed Comments Unknown Sex and Gender Information Value Date Recorded Sex Assigned at Not on file Legal Sex Female 7:37 PM CDT Gender Identity Not on file Sexual Orientation Not on file Plan of Treatment Health Maintenance Due Date Last Done Comments Cervical Cancer Screening Pa p Smear (Age 30 to 64) Every 3 Years 1991 Annual Physical 12/16/1994 Hepatitis C 12/16/2009 DTaP, Tdap and Td Vaccines ( 1 - Tdap) 12/16/2010 Hepatitis B Vaccines (1 of 3 - 19+ 3-dose series) 12/16/2010 Cervical Cancer Screening Pa p with HPV Testing (Age 30 to 64) Every 5 Years 12/16/2021 Cervical Cancer Screening with HPV 12/16/2021 COVID-19 Vaccine ( - 2023-2 5 season) 2024 Influenza Adult (#1) 2024 HPV Vaccines Aged Out No longer eligi ble based on patient's age to complete this topic Meningococcal B Vaccine Aged Out No l onger eligible based on patient's age to complete this topic Meningococcal Vaccine Aged Out No esteban nadja eligible based on patient's age to complete this topic Pneumococcal Vaccine: Pediat rics (0 to 5 Years) and At-Risk Patients (6 to 64 Years) Aged Out No longer eligible b ased on patient's age to complete this topic RSV Immunizations Under 20 Months Aged Out No longer eligible based on patient's age to complete this topic
--- OUTSIDE RECORDS SUMMARY | 2024-09-21 09:25 | XMS_ITS | Clinical Summary ---
Author Organization [facility] Address [address] [place] [address] Care Team Providers Care Telephone Solicitor Supervisor Name Role Phone Unavailable Primary Care Provider Unavailabl e Source Comments [facility],non-owned Affiliates and Associated Physician Practices is amultiple site organization consisting of ambulatory clinics and hospital sitesin [place], [place], [place] and [place]. This disclosure is being madepursuant to the Care Everywhere program and may not contain all information available regarding this patient. Last updated 18.[facility] [employer] Social History Tobacco Use Types Packs/Day Years Used Date Smoking Tobacco: Never Assessed Sex and Gender Information Value Date Recorded Sex Assigned at Not on file Gender Identity Not on file Sexual Orientation Not on file Plan of Treatment Health Maintenance Due Date Last Done Comments PAP SMEAR 1991 HIV SCREENING 12/16/2006 HEPATITIS C SCREENING 12/12/2009 DTAP/TDAP/TD VACCINES (1 - Tdap) 12/16/2010 HEPATITIS B VACCINE (1 of 3 - 19+ 3-dose series) 12/16/2010 COVID-19 VACCINE ( - 2023-2 5 season) 2024 INFLUENZA VACCINE (#1) 2024 DEPRESSION SCREENING 08/12/2024 ZOSTER VACCINE (1 of 2) 12/16/2041 HIB VACCINE Aged Out No longer eligi ble based on patient's age to complete this topic HPV VACCINE Aged Out No longer eligi ble based on patient's age to complete this topic MENINGOCOCCAL (Group B) VACCINE Aged Out No longer eligible based on patient's age to complete this topic MENINGOCOCCAL VACCINE Aged Out No esteban nadja eligible based on patient's age to complete this topic PNEUMOCOCCAL VACCINE Aged Out No long er eligible based on patient's age to complete this topic
--- OUTSIDE RECORDS SUMMARY | 2024-09-21 09:25 | XMS_ITS | Referral Summary ---
Author Organization [facility] Address [address] [place] [address] Care Team Providers Care Enterprise Resource Planning Consultant Name Role Phone Unavailable Primary Care Provider Unavailabl e Source Comments [facility],non-owned Affiliates and Associated Physician Practices is amultiple site organization consisting of ambulatory clinics and hospital sitesin [place], [place], [place] and [place]. This disclosure is being madepursuant to the Care Everywhere program and may not contain all information available regarding this patient. Last updated 18.[facility] Social History Tobacco Use Types Packs/Day Years Used Date Smoking Tobacco: Never Assessed Sex and Gender Information Value Date Recorded Sex Assigned at Not on file Gender Identity Not on file Sexual Orientation Not on file Plan of Treatment Not on file
--- OUTSIDE RECORDS SUMMARY | 2024-09-21 09:25 | XMS_ITS | Patient Health Summary ---
Author Organization [facility] Address [address] [address] Care Team Providers Care Vacuum Worker Name Role Phone Unavailable Primary Care Provider Unavailabl e Note from [facility],non-owned Affiliates and Associated Physician Practices is amultiple site organization consisting of ambulatory clinics and hospital sitesin [place], [place], [place] and [place]. This disclosure is being madepursuant to the Care Everywhere program and may not contain all information available regarding this patient. Last updated 18.[facility] [employer] Social History Tobacco Use Types Packs/Day Years Used Date Smoking Tobacco: Never Assessed Sex and Gender Information Value Date Recorded Sex Assigned at Not on file Gender Identity Not on file Sexual Orientation Not on file Procedures * XR HAND LEFT 3VW OR MORE(Performed 05/07/2012) Results * XR HAND LEFT 3VW OR MORE (05/07/2012 8:34 AM CDT) Anatomical Region Laterality Modality Wrist / Hand Other Impressions 05/07/2012 1:43 PM CDT Impression: No acute osseous injury. Dictated by Dimas Coffey MD (Resident) I, Dr. Chavarria, have personally reviewed and interpreted this examination/study. Narrative 05/07/2012 1:43 PM CDT Exam: XR HAND LEFT 3+ VW Date: May 07, 2012 8:34:50 AM History: pain Comparison: None available Findings: No acute fracture or dislocation is present. The joint spaces are preserved. There is no soft tissue swelling or joint effusion. Bony mineralization is normal. Procedure Note Dimas Chavarria MD - 11/10/2017 Exam: XR HAND LEFT 3+ VW Date: May 07, 2012 8:34:50 AM History: pain Comparison: None available Findings: No acute fracture or dislocation is present. The joint spaces arepreserved. There is no soft tissue swelling or joint effusion. Bonymineralization is normal. IMPRESSION Impression: No acute osseous injury. Dictated by Dimas Coffey MD (Resident) I, Dr. Chavarria, have personally reviewed and interpreted thisexamination/study. Milton Keller MD DIAGNOSTIC IMAGING O RDERABLES
--- OUTSIDE RECORDS SUMMARY | 2024-09-21 09:25 | XMS_ITS | Clinical Summary ---
Author Organization [address] Address [address] [address] Care Team Providers Care Steam And Power Superintendent Name Role Phone Pamella Harmno Primary Care Provider [phone] [phone] Klever Washington MD Unavailable [phone]- [phone] Allergies No known active allergies Medications levonorgestre L (Mirena) IUD Mirena 20 mcg/24 hours (7 yrs) 52 mg intrauterine device Take 1 device by intrauterine route. Active sertraline (ZOLOFT) 100 mg tabletIndicat ions:Mild episode of recurrent major depressive disorder (HCC),ANN (generalized anxiety disorder) Take 1 tablet (100 mg total) by mouth daily 90 tablet 3 08/31/19 25 Active HYDROcodone-a cetaminophen (NORCO) 5-325 mg per tabletIndicat ions:Pain Take 1 tablet by mouth every 8 (eight) hours as needed for pain 20 tablet 08/27/19 24 025 Discontinued sertraline (ZOLOFT) 100 mg tabletIndicat ions:Mild episode of recurrent major depressive disorder (HCC),ANN (generalized anxiety disorder) Take 1 tablet (100 mg total) by mouth daily 90 tablet 3 09/03/19 24 025 Discontinued(R eorder) loratadine (CLARITIN) 10 mg tabletIndicat ions:Rash Take 1 tablet (10 mg total) by mouth daily 30 tablet 1 01/02/20 24 025 Discontinued Active Problems Problem Noted Date Diagnosed Date Mild episode of recurrent major depressive disor florencio 06/20/2020 Assessment & Plan (08/31/2024 9:34 AM ENDODONTIST): Chronic and uncontrolled. I offered to increase her sertraline. Patient states when she takes a higher dose she has little to no emotion. I offered to add Wellbutrin, patient states this causes suicidal ideations. She has tried other SSRIs in the past, sertraline is the only medication that seems to work for her. I have sent a refill for this. At this time I would strongly recommend she follow-up with psychiatry and a counselor. Handout provided today. Should she experience suicidal ideations she is to report to the ER for evaluation. She voiced understanding. I also offered to place a referral to the [facility] case management social worker to provide assistance with finances and referrals. Patient declined. Assessment & Plan (09/03/2023 9:44 AM ENDODONTIST): Chronic and controlled. Continue Zoloft 100 mg daily. Follow-up as needed. Assessment & Plan (07/17/2022 8:00 AM ENDODONTIST): Chronic. Her PHQ-9 score is elevated. I reviewed this with her today. Patient does not want to change her medication. I offered to add Wellbutrin or BuSpar to her regimen, she declined. She declines counseling. She would like to continue with her current medication and dosage. She denies any suicidal ideation. Will continue Zoloft 100 mg daily. I encouraged her to follow-up if she would like to try different medication or add on another medication. Patient voiced understanding and agreement. All questions answered. Assessment & Plan (11/08/2021 7:56 AM CDT): Chronic and well controlled. Continue Zoloft 100 mg daily. Follow-up with me for any new or changing symptoms. Assessment & Plan (06/20/2020 11:39 AM ENDODONTIST): Chronic and well controlled on Zoloft 100 mg daily. Patient will let me know when she needs a refill. Continue current management. ANN (generalized anxiety disorder) 06/20/2020 Assessment & Plan (08/31/2024 8:46 AM ENDODONTIST): See above. Assessment & Plan (09/03/2023 9:43 AM ENDODONTIST): See above. Assessment & Plan (07/17/2022 7:00 AM ENDODONTIST): See above. Assessment & Plan (11/08/2021 7:33 AM CDT): See above. Assessment & Plan (06/20/2020 11:39 AM ENDODONTIST): See above. Routine adult health maintenance 06/17/2020 Overview (08/31/2024): Health Maintenance: -PCV20: N/A -Tdap vaccine: 2019 -Influenza vaccine: due -Shingles vaccine: N/A -Colonoscopy: N/A -Last WWE: UTD per patient, with BUILDING ASSOCIATE -Last Mammogram: N/A -Last DEXA: N/A -Last eye exam: N/A -Last MHA: N/A Assessment & Plan (08/31/2024 9:33 AM ENDODONTIST): Health Maintenance: -PCV20: N/A -Tdap vaccine: 2019 -Influenza vaccine: due -Shingles vaccine: N/A -Colonoscopy: N/A -Last WWE: UTD per patient, with BUILDING ASSOCIATE -Last Mammogram: N/A -Last DEXA: N/A -Last eye exam: N/A -Last MHA: N/A Recommend annual flu shots. Will request her Pap from BUILDING ASSOCIATE. See me annually for routine physicals. Assessment & Plan (09/03/2023 9:44 AM ENDODONTIST): Health Maintenance: -PCV20: N/A -Tdap vaccine: 2019 -Influenza vaccine: due -Shingles vaccine: N/A -Colonoscopy: N/A -Last WWE: 02/21/22 -Last Mammogram: N/A -Last DEXA: N/A -Last eye exam: N/A -Last MHA: N/A Patient will schedule follow-up with gynecology for repeat Pap smear. Work on healthy diet and exercise habits. Annual labs ordered. See me annually for routine physicals. Assessment & Plan (11/08/2021 7:57 AM CDT): Health Maintenance: -PCV13 vaccine: N/A -PPSV23 vaccine: N/A -Tdap vaccine: 2019 -Influenza vaccine: due -Shingles vaccine: N/A -Colonoscopy: N/A -Last WWE: 2020 -Last Mammogram: N/A -Last DEXA: N/A -Last eye exam: N/A -Last MHA: N/A Patient is up-to-date on health maintenance. Annual screening labs were ordered today. She will be notified of the results. Continue with healthy diet and exercise habits. See me annually for routine physicals. Resolved Problems Problem Noted Date Diagnosed Date Resolved Date Chronic right shoulder pain 11/08/2021 09/02/2023 Assessment & Plan (11/08/2021 7:58 AM CDT): Discussed referral to physical therapy or orthopedics for further evaluation and management. Patient would like to try massage therapy first. If there is no improvement she will follow-up with me in a few months to discuss further management. Continue Flexeril as needed. Continue [id number] medications as needed. Patient voiced agreement with this plan. All questions answered. Cervical intraepithelial neoplasia grade 2 06/20/2020 06/20/2020 BMI 27.0-27.9,adult 06/20/2020 11/09/19 Assessment & Plan (06/20/2020 11:35 AM ENDODONTIST): Reviewed BMI Focus on healthy diet options Work on healthy changes Encounters Date Type Department Care Team Description 08/31/2024 9:00 AM ENDODONTIST Office Visit [facility] Family Medicine [address] [place] [id number] Pamella Harmon PA Routine adult health maintenance (Primary Dx); Mild episode of recurrent major depressive disorder (HCC); ANN (generalized anxiety disorder) from Last 3 Months Immunizations Name Administration Dates Next Due Influenza LAIV (Nasal) 07/17/2022(Deferred: Giana ent Refused) Influenza, Trivalent, IM (MDV) 04/01/2014,2012 Influenza, Trivalent, Preser vative Free, Intramuscular 05/19/2017 Influenza, Trivalent, Split, Preservative Free, Intradermal 08/22/2012 Influenza, Unspecified 05/12/2024(Deferr ed: Patient Refused),05/12/2023(Deferred: Patient Refused),05/12/2022(Deferred: Patient Refused),05/12/2021(Deferred: Patient Refused),05/12/2020(Deferred: Patient Refused) Tdap 02/24/2019,09/25/2017 Surgical History Surgery Date Site/Laterality Comments WISDOM TOOTH EXTRACTION APPENDECTOMY CHOLECYSTECTOMY ABDOMINAL SURGERY LEEP Medical History Medical History Date Comments Hx Other Medical abnormal thyroi d function Depression Anxiety Cervical intraepithelial neoplasia grade 2 2019 Family History Medical History Relation Name Comments Alcohol abuse Father Rodrigo Guzmans Arthritis Father Rodrigo Guzmans COPD Father Rodrigo Guzmans Depression Father Rodrigo Guzmans Drug abuse Father Rodrigo Guzmans Hypertension Father Rodrigo Guzmans Tuberculosis Father Rodrigo Guzmans COPD Maternal Grandfather Amy Roosevans Early Maternal Grandfather Amy Roosevans Hearing loss Maternal Grandfather Sharon Roosevans Heart attack Maternal Grandfather Amy Roosevans Heart disease Maternal Grandfather Sharon Roosevans Rashes / Skin problems Maternal Grandfather Sharon R oosevans Diabetes Maternal Grandmother Haylee Roosevans Heart attack Maternal Grandmother Haylee Roosevans Memory loss Maternal Grandmother Haylee Roosevans Stroke Maternal Grandmother Haylee Roosevans Arthritis Mother Emily Guido COPD Mother Emily Guido Hyperlipidemia Mother Emily Guido Hypertension Mother Emily Guido Other Other No family histo ry of Thyroid disease; Cancer Paternal Grandfather MILAN MARANDA Alzheimer's disease Paternal Grandmother CHERYL MARANDA Memory loss Paternal Grandmother CHERYL MARANDA Relation Name Status Comments Father Rodrigo Low Alive Maternal Grandfather Amy Roosevans Maternal Grandmother Haylee Roosevans Mother Emily Guido Alive Other Paternal Grandfather MILAN MARANDA Paternal Grandmother CHERYL MARANDA Social History Tobacco Use Types Packs/Day Years Used Date Smoking Tobacco: Former Cigarettes Q uit: 09/12/2018 Vaping Quit: 09/2018 Smokeless Tobacco: Never Tobacco Cessation:Counseling Given: Not Answered Alcohol Use Standard Drinks/Week Comments Yes 0 (1 standard drink = 0.6 oz pur e alcohol) AUDIT-C Answer Date Recorded Q1: How often do you have a drink containing alc ohol? 2-3 times a week 07/17/2022 Q2: How many drinks containi ng alcohol do you have on a typical day when you are drinking? 1 or 2 07/17/2022 Q3: How often do you have si x or more drinks on one occasion? Less than monthly 07/17/2022 PHQ-2 Answer Date Recorded PHQ-2 Total Score (If total score is 3 or more points, staff should administer the PHQ-9) 4 08/31/2024 Personal Safety Answer Date Recorded Have you ever been in or are you currently in a harmful physical or emotional relationship or is someone making you feel afraid or unsafe? Denies 11/07/2022 Comments No Sex and Gender Information Value Date Recorded Sex Assigned at Not on file Legal Sex Female 1:48 AM ENDODONTIST Gender Identity Female 06/19/2020 11:45 AM ENDODONTIST Sexual Orientation Straight 06/19/2020 11 :45 AM ENDODONTIST Obstetrics History Last Filed Vital Signs Vital Sign Reading Time Taken Comments Blood Pressure 102/68 08/31/2024 8:54 AM ENDODONTIST Pulse 96 08/31/2024 8:54 AM ENDODONTIST Temperature 36.9 C (98.4 F) 08/31/2024 8:54 AM ENDODONTIST Respiratory Rate 18 08/31/2024 8:54 AM ENDODONTIST Oxygen Saturation 99% 08/31/2024 8:54 AM ENDODONTIST Inhaled Oxygen Concentration - - Weight 63.3 kg (139 lb 8 oz) 08/31/2024 8:54 AM ENDODONTIST Height 157.5 cm (5' 2 ) 08/31/2024 8:54 AM ENDODONTIST Body Mass Index 25.51 08/31/2024 8:54 AM ENDODONTIST Plan of Treatment Health Maintenance Due Date Last Done Comments Hepatitis C Screening 1991 Hepatitis B Screening 12/16/2009 Cervical Cancer Screening 03/11/2023 03/11/2022 Influenza Vaccine (#1) 2024 7, 04/01/2014, 05/04/2013, Additional history exists Depression Screening 08/31/2025 08/31/2024, 08/31/2024, 08/27/2023, Additional history exists Regular Well Visit/Exam 18-64 08/31/2025 08/31/2024, 09/03/2023, 11/08/2021, Additional history exists DTaP/Tdap/Td Vaccine (3 - Td or Tdap) 02/24/2029 02/24/2019, 09/25/2017 HPV Vaccines Aged Out No longer eligi ble based on patient's age to complete this topic Pneumococcal vaccine <65 Aged Out No longer eligible based on patient's age to complete this topic Varicella Vaccines Discontinued Procedures Procedure Name Priority Date/Time Associated Diagnosis Comments HM PAP SMEAR WITH HPV Routine 03/11/2022 from Last 3 Months or Most Recently Relevant to Health Maintenance Results * HM PAP SMEAR WITH HPV (03/11/2022) Historical Provider HEALTH MAINTENANCE Final Result from Last 3 Months or Most Recently Relevant to Health Maintenance Insurance [facility] Care Teams Steam And Power Superintendent Relationship Specialty Start Date End Date Pamella Harmon PA [address] [place] [address] PCP - General Family Medicine 06/13/20 Klever Washington MD [address] [place] [address] Consulting Physician Family Medicine 06/13/20
--- OUTSIDE RECORDS SUMMARY | 2024-09-21 09:25 | XMS_ITS | Referral Summary ---
Author Organization [facility] 310 [facility] Address [address] [address] Care Team Providers Care Branch Associate Teller Name Role Phone Pamella Harmon Primary Care Provider [phone] -[phone] Klever Washington MD Unavailable +1- [phone] Encounters Date Type Department Care Team Description 08/31/2024 9:00 AM SPRING TACKER Office Visit [facility] Family Medicine [address] [phone] Pamella Harmon PA Routine adult health maintenance (Primary Dx); Mild episode of recurrent major depressive disorder (HCC); ANN (generalized anxiety disorder) from Last 3 Months Allergies No known active allergies Medications levonorgestre [...] 90 tablet 3 09/03/19 24 025 Discontinued(R eolaureener) loratadine (CLARITIN) 10 mg tabletIndicat ions:Rash Take 1 tablet (10 mg total) by mouth daily 30 tablet 1 01/02/20 24 025 Discontinued Active Problems Problem Noted Date Diagnosed Date Mild episode of recurrent major depressive disor florencio 06/20/2020 Assessment & Plan (08/31/2024 9:34 AM SPRING TACKER): Chronic and uncontrolled. I offered to increase [...] offered to place a referral to the [facility] director of social work to provide assistance with finances and referrals. Patient declined. Assessment & Plan (09/03/2023 9:44 AM SPRING TACKER): Chronic and controlled. Continue Zoloft 100 mg daily. Follow-up as needed. Assessment & Plan (07/17/2022 8:00 AM SPRING TACKER): Chronic. Her PHQ-9 score is elevated. I [...] symptoms. Assessment & Plan (06/20/2020 11:39 AM SPRING TACKER): Chronic and well controlled on Zoloft 100 mg daily. Patient will let me know when she needs a refill. Continue current management. ANN (generalized anxiety disorder) 06/20/2020 Assessment & Plan (08/31/2024 8:46 AM SPRING TACKER): See above. Assessment & Plan (09/03/2023 9:43 AM SPRING TACKER): See above. Assessment & Plan (07/17/2022 7:00 AM SPRING TACKER): See above. Assessment & Plan (11/08/2021 7:33 AM CDT): See above. Assessment & Plan (06/20/2020 11:39 AM SPRING TACKER): See above. Routine adult health maintenance 06/17/2020 Overview (08/31/2024): Health Maintenance: -PCV20: N/A -Tdap vaccine: 2019 -Influenza vaccine: due -Shingles vaccine: N/A -Colonoscopy: N/A -Last WWE: UTD per patient, with HOGSHEAD ROLLER -Last Mammogram: N/A -Last DEXA: N/A -Last eye exam: N/A -Last MHA: N/A Assessment & Plan (08/31/2024 9:33 AM SPRING TACKER): Health Maintenance: -PCV20: N/A -Tdap vaccine: 2019 -Influenza vaccine: due -Shingles vaccine: N/A -Colonoscopy: N/A -Last WWE: UTD per patient, with [facility]LL[facility] -Last Mammogram: N/A -Last DEXA: N/A -Last eye exam: N/A -Last MHA: N/A Recommend annual flu shots. Will request her Pap from [facility]. See me annually for routine physicals. Assessment & Plan (09/03/2023 9:44 AM SPRING TACKER): Health Maintenance: -PCV20: N/A -Tdap vaccine: 2019 [...] further management. Continue Flexeril as needed. Continue [id number] medications as needed. Patient voiced agreement with this plan. All questions answered. Cervical intraepithelial neoplasia grade 2 06/20/2020 06/20/2020 BMI 27.0-27.9,adult 06/20/2020 11/09/19 Assessment & Plan (06/20/2020 11:35 AM SPRING TACKER): Reviewed BMI Focus on healthy diet options Work on healthy changes Immunizations Name Administration Dates Next Due Influenza LAIV (Nasal) 07/17/2022(Deferred: Giana ent Refused) Influenza, Trivalent, IM (MDV) 04/01/2014,2012 Influenza, Trivalent, Preser vative Free, Intramuscular 05/19/2017 Influenza, Trivalent, Split, Preservative Free, Intradermal 08/22/2012 Influenza, Unspecified 05/12/2024(Deferr ed: Patient Refused),05/12/2023(Deferred: Patient Refused),05/12/2022(Deferred: Patient Refused),05/12/2021(Deferred: Patient Refused),05/12/2020(Deferred: Patient Refused) Tdap 02/24/2019,09/25/2017 Social History Tobacco Use Types Packs/Day Years [...] on file Legal Sex Female 1:48 AM SPRING TACKER Gender Identity Female 06/19/2020 11:45 AM SPRING TACKER Sexual Orientation Straight 06/19/2020 11 :45 AM SPRING TACKER Last Filed Vital Signs Vital Sign Reading Time Taken Comments Blood Pressure 102/68 08/31/2024 8:54 AM SPRING TACKER Pulse 96 08/31/2024 8:54 AM SPRING TACKER Temperature 36.9 C (98.4 F) 08/31/2024 8:54 AM SPRING TACKER Respiratory Rate 18 08/31/2024 8:54 AM SPRING TACKER Oxygen Saturation 99% 08/31/2024 8:54 AM SPRING TACKER Inhaled Oxygen Concentration - - Weight 63.3 kg (139 lb 8 oz) 08/31/2024 8:54 AM SPRING TACKER Height 157.5 cm (5' 2 ) 08/31/2024 8:54 AM SPRING TACKER Body Mass Index 25.51 08/31/2024 8:54 AM SPRING TACKER Plan of Treatment Not on file Procedures Procedure Name Priority Date/Time Associated Diagnosis Comments HM PAP SMEAR WITH HPV Routine 03/11/2022 from Last 3 Months or Most Recently Relevant to Health Maintenance Results * HM PAP SMEAR WITH HPV (03/11/2022) Historical Provider HEALTH MAINTENANCE Final Result from Last 3 Months or Most Recently Relevant to Health Maintenance Insurance [facility] Care Teams Branch Associate Teller Relationship Specialty Start Date End Date Pamella Harmon PA [address] [place] [address] PCP - General Family Medicine 06/13/20 Klever Washington MD [address] [place] [address] Consulting Physician Family Medicine 06/13/20
== END 2024-09-21 09:01 | disposition home or self-care (01) ==
PROVIDERS: Visit Provider Obstetrics & Gynecology
DX: N64.4 Mastodynia (principal); N63.10 Unspecified lump in the right breast, unspecified quadrant
CPT/HCPCS: 76641; 77062; 77066; G0279

== ENCOUNTER 2024-10-22 10:30 | Emergency (ER) | payer OTHER, SELFPAY ==
[2024-10-22 10:46] VITALS: BP 110/73; PULSE 84; RESP 16; TEMP 36.3; O2SAT 99
--- NOTE | 2024-10-22 10:54 | ED_ITS ---
HPI - URI/Sore Throat General Chief Complaint: Upper Respiratory Infection Stated Complaint: Sore Throat/Ears Irritation Time Seen by Provider: 10/22/24 10:55 Source: patient Mode of arrival: ambulatory Limitations: no limitations History of Present Illness HPI Narrative: Marce is a 33-year-old female patient presenting to the clinic today with complaints sore throat, bilateral ear pain, headache, and nasal congestion x2 days. She reports she has had exposure to influenza and strep. Has started taking [id number] amoxicillin that she purchased at a [employer] grocery store. States that the medication is not helping. Has had to miss 3 days of work due to her symptoms her boss recommended she be evaluated. MD elicited complaint: sore throat, nasal congestion and other (Headache, bilateral ear pain) Related Data Home Medications ?Medication ?Instructions ?Recorded ?Confirmed ?Last Taken ?Type sertraline 50 mg tablet 50 mg PO DAILY 09/16/24 09/16/24 Unknown History Allergies Allergy/AdvReac Type Severity Reaction Status Date / Time No Known Allergies Allergy Verified 10/22/24 10:44 Review of Systems Review of Systems: Pertinent positives per HPI. Patient denies any fever, chills, rash, headache, visual changes, dizziness, shortness of breath, chest pain, palpitations, nausea, vomiting, diarrhea, constipation, abdominal pain, or any urinary issues. 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 Abnormal Pap smear of cervix 01/13/2009-lgsil (+) hpv, 01/26/2010-LGSIL+HPV, 08/30/2010 Lgsil +hpv,10/22/2011- LGSIL, 09/24/2012 HGSIL Moderate dyplasia+hpv Overactive bladder Migraines Anxiety and depression History of depression History of anxiety Surgical History Surgical History History of gynecological procedure (03/27/23) cauterization of cervical lesion History of colposcopy (04/04/22) Hx of cholecystectomy History of appendectomy History of colposcopy multiple HGSIL/ Mild dysplasia IVY 1 H/O LEEP (03/14/23) LEEP, dx laparoscopy-pelvic pain - Hsgil VIY 3 - HGSIL IVY 2 Family History Family History Mother Hypertension Grandparent Family history of congestive heart failure Diabetes mellitus Social History Social History Smoking status: Current every day smoker Tobacco type: e-cigarettes/vaping Second hand tobacco smoke exposure: Yes Alcohol intake: former Drinks per week: 1 Alcohol use details: A FEW TIMES A WEEK, RECENTLY QUIT Substance use: current Substance use type: marijuana Other substance usage details: daily Do You Feel Safe in your Home?: Yes Lack of Transportation: No Lack of Food: Never True Current Housing: I Have Housing Concerned About Future Housing: No Difficulty Paying Gas/Electric Bills: No Difficulty Paying for Meds: No Currently Unemployed: No Education: Associate Degree Difficulty w/ Childcare or Family Care: No Living arrangements: with family Additional living arrangements comments: lives with boyfriend CHILDREN Occupation/Education: occupation Additional occupation/education comments: [employer] Gender identity (if verbalized by the patient): Female Sexual Orientation (if Verbalized by the Patient): Straight or Heterosexual Spiritual care concerns: No Comments At the time of my signature, I reviewed and agree with the nursing past medical, surgical, social, and family history. There is no relevant family history pertinent to the patient complaint. Exam Narrative: General: Well-developed, well nourished, in no apparent distress Head: Normocephalic, atraumatic Eyes: Pupils equally round and reactive to light bilaterally, EOM intact, sclera and conjunctive clear, no discharge, lids normal Ears: TMs intact and congested, ear canals clear, no drainage, grossly hearing normal. Nose: Nares patent, clear discharge, no inflammation, no sinus tenderness. Mouth: Oral pharynx red without lesions or masses, good dentition, MMM. Neck: Supple, trachea midline, no enlargement of anterior or posterior cervical nodes, no thyroid masses or goiter palpable. Cardio: Regular rate and rhythm, s1 and s2 normal, no murmur appreciated. Resp: Clear to auscultation bilaterally, no rhonchi, rales, wheezing or rubs Course Course Emergency Course: Portions of this record may have been created with voice recognition software. Level of Care: Express Care Visit Vital Signs Vital signs: Vital signs reviewed MDM - URI/Sore Throat MDM Narrative Medical decision making narrative: At the time of visit patient is resting comfortably on the exam table. Patient appears to be nontoxic. Labs: Strep test was negative in the clinic today. We will send strep for culture. Influenza and COVID testing was performed and was negative Plan: I suspect patient has URI/pharyngitis/viral syndrome. Prescription for prednisone was sent to the pharmacy. Supportive measures were discussed with the patient and they voiced understanding discharge instructions and agrees to treatment plan. Return precautions reviewed Differential Diagnosis Differential diagnosis: Likely upper respiratory infection, otitis media, sinusitis, viral infection, bronchitis, influenza, pharyngitis and other (COVID) Discharge Plan Discharge Clinical Impression: Acute viral syndrome URI (upper respiratory infection) Qualifiers: URI type: unspecified URI Qualified Code(s): J06.9 - Acute upper respiratory infection, unspecified Pharyngitis Qualifiers: Pharyngitis/tonsillitis etiology: unspecified etiology Qualified Code(s): J02.9 - Acute pharyngitis, unspecified Patient Disposition: Home, Self-Care Condition: Stable Instructions: Antibiotic Form, Pharyngitis (ED), Upper Respiratory Infection (ED), Viral Syndrome (ED) Additional Instructions: Strep test is negative in the clinic today. We will send strep for culture. Influenza and COVID testing is negative. Take prescription medications only as prescribed-prednisone Increase fluids and stay well hydrated Tylenol/motrin for pain/fever Flonase and OTC antihistamines as directed Vicks vapor rub to open sinuses Sinus rinses for congestion Cepacol spray, cough drops, throat lozenges, warm tea with honey/lemon, gargle salt water to soothe throat BRAT diet for diarrhea Clear liquids x 24 hours then advance as tolerated for nausea/vomiting Go to the ED if you develop a worsening in your condition- high fever not controlled by Tylenol or Motrin, dehydration, weakness, lethargy, shortness of breath, or chest pain. Follow up with your PCP in 3-5 days if symptoms persist. Patient Language: Micronesian Prescriptions: New prednisone 20 mg tablet 40 mg PO DAILY 5 Days Qty: 10 0RF No Action sertraline 50 mg tablet 50 mg PO DAILY Follow-up/Referrals: Eden,HUGO Galvan [Primary Care Provider] - Stand Alone Forms: Work/School Release IP Time of Disposition: 11:24 Quality NIHSS Nursing Documentation ED NIHSS nursing documentation: reviewed/agree
[2024-10-22 11:07] LABS: EDSTREPNEGPOS1 Negative (Negative)
[2024-10-22 11:28] LABS: EDCOVIDSCREEN Negative (Negative); EDINFLUASCREEN Negative (Negative); EDINFLUBSCREEN Negative (Negative)
== END 2024-10-22 11:38 | disposition home or self-care (01) ==
PROVIDERS: Emergency Provider Nurse Practitioner Family; PCP Physician Assistant
DX: J06.9 Acute upper respiratory infection, unspecified (principal); B97.89 Other viral agents as the cause of diseases classified elsewhere; F17.290 Nicotine dependence, other tobacco product, uncomplicated; Z20.822 Contact with and (suspected) exposure to COVID-19
CPT/HCPCS: 87081; 87426; 87804; 87880; 99213; G0463

== ENCOUNTER 2024-12-30 11:42 | Emergency (ER) | payer OTHER, SELFPAY ==
--- NOTE | ~2024-12-30 | XR_ITS ---
EXAMINATION: XR foot RT min 3V, XR ankle RT min 3V DATE: 12/30/2024 13:27 INDICATION: 2 weeks of right foot and ankle pain TECHNIQUE: 1. Anteroposterior, mortise, additional oblique and lateral view of the right ankle were obtained. 2. Dorsoplantar, two oblique and lateral views of the right foot were obtained. COMPARISON: None. FINDINGS: Alignment of the foot and ankle is normal. No fracture or osteochondral lesion. Joint spaces are well maintained. No cortical erosions or periosteal reaction. No ankle joint effusion. There is soft tiss ue swelling at the lateral forefoot centered about the head of the fifth metatarsal. IMPRESSION: 1. No osseous abnormality to right foot or ankle. Reviewed, dictated and finalized at location A. IMPRESSION: 1. No osseous abnormality to right foot or ankle.
[2024-12-30 12:30] VITALS: BP 107/67; PULSE 64; RESP 18; TEMP 36.2; O2SAT 100
--- NOTE | 2024-12-30 12:47 | PC.NURSE ---
Pt desires radiology exam and understands that she must do at alternate location. Phone report regarding pt condition to JOEY Vargas @ [facility]. Pt given address [facility]. Pt left ambulatory in stable condition by private vehicle.
--- NOTE | 2024-12-30 12:49 | ED_ITS ---
HPI - Extremity Injury (Lower) General Chief Complaint: Extremity Injury, Lower <Shivam Palafox APRN - Last Filed: 12/30/24 13:39> Stated Complaint: R ankle pain <Shivam Palafox APRN - Last Filed: 12/30/24 13:39> Time Seen by Provider: 12/30/24 12:30 <Shivam Palafox APRN - Last Filed: 12/30/24 13:39> Source: patient and RN notes reviewed <Rhys Jessica APRN - Last Filed: 12/30/24 14:19> Mode of arrival: ambulatory <Rhys Jessica APRN - Last Filed: 12/30/24 14:19> Limitations: no limitations <Rhys Jessica APRN - Last Filed: 12/30/24 14:19> History of Present Illness HPI Narrative: 34-year-old female Presents Express Care complaining of pain to right ankle/foot. Patient reports developing right ankle/foot pain about 2 weeks ago. Patient denies any apparent injury to her right ankle or foot. Patient said 2 weeks ago they recently purchased a large vehicle that requires her to use a writing board to get in and out of the vehicle. Patient reports the pain is in the top of her right ankle into the bottom of her foot healing right foot. Patient reports mild swelling and difficulty bearing weight on the affected foot. Patient's has been taking Tylenol or ibuprofen with some relief. Patient has also been using an Nahid wrap and ice to help with pain. Patient denies any numbness, tingling or any other injuries. Patient has a decent significant past medical history. <Rhys Jessica APRN - Last Filed: 12/30/24 14:19> Related Data Home Medications: Home Medications ?Medication ?Instructions ?Recorded ?Confirmed ?Last Taken ?Type sertraline 50 mg tablet 50 mg PO DAILY 09/16/24 09/16/24 Unknown History sertraline 100 mg tablet mg 12/30/24 Unknown History <Shivam Palafox APRN - Last Filed: 12/30/24 13:39> Allergies/Adverse Reactions: Allergies Allergy/AdvReac Type Severity Reaction Status Date / Time No Known Allergies Allergy Verified 12/30/24 12:24 <Shivam Palafox APRN - Last Filed: 12/30/24 13:39> Review of Systems Review of Systems: CONSTITUTIONAL: Denies fever, chills, or sweats. EYES: Denies visual changes, redness, or discharge. ENT: Denies rhinorrhea, congestion, sore throat, or otalgia. CARDIOVASCULAR: Denies chest pain, palpitations, or edema. RESPIRATORY: Denies cough or dyspnea. GASTROINTESTINAL: Denies abdominal pain, nausea, vomiting, or diarrhea. GENITOURINARY: Denies dysuria or hematuria. SKIN: Denies rash, wound, or itching. MUSCULOSKELETAL: Denies back pain, joint pain, or myalgia. Positive for foot and ankle pain and swelling NEUROLOGIC: Denies headache, numbness, or weakness. PSYCHIATRIC: Denies anxiety or depression. All other systems reviewed are negative, except as documented in HPI. 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 Abnormal Pap smear of cervix 01/13/2009-lgsil (+) hpv, 01/26/2010-LGSIL+HPV, 08/30/2010 Lgsil +hpv,10/22/2011- LGSIL, 09/24/2012 HGSIL Moderate dyplasia+hpv Overactive bladder Migraines Anxiety and depression History of depression History of anxiety <Shivam Palafox APRN - Last Filed: 12/30/24 13:39> Surgical History Surgical History: Surgical History History of gynecological procedure (03/27/23) cauterization of cervical lesion History of colposcopy (04/04/22) Hx of cholecystectomy History of appendectomy History of colposcopy multiple HGSIL/ Mild dysplasia IVY 1 H/O LEEP (03/14/23) LEEP, dx laparoscopy-pelvic pain - Hsgil IVY 3 - HGSIL IVY 2 <Shivam Palafox APRN - Last Filed: 12/30/24 13:39> Family History Family History: Family History Mother Hypertension Grandparent Family history of congestive heart failure Diabetes mellitus <Shivam Palafox APRN - Last Filed: 12/30/24 13:39> Social History Social History: Social History Smoking status: Current every day smoker Tobacco type: e-cigarettes/vaping Second hand tobacco smoke exposure: Yes Alcohol intake: former Drinks per week: 1 Alcohol use details: A FEW TIMES A WEEK, RECENTLY QUIT Substance use: current Substance use type: marijuana Other substance usage details: daily Do You Feel Safe in your Home?: Yes Lack of Transportation: No Lack of Food: Never True Current Housing: I Have Housing Concerned About Future Housing: No Difficulty Paying Gas/Electric Bills: No Difficulty Paying for Meds: No Currently Unemployed: No Education: Associate Degree Difficulty w/ Childcare or Family Care: No Living arrangements: with family Additional living arrangements comments: lives with boyfriend CHILDREN Occupation/Education: occupation Additional occupation/education comments: [employer] Gender identity (if verbalized by the patient): Female Sexual Orientation (if Verbalized by the Patient): Straight or Heterosexual Spiritual care concerns: No <Shivam Palafox APRN - Last Filed: 12/30/24 13:39> Comments At the time of my signature, I reviewed and agree with the nursing past medical, surgical, social, and family history. There is no relevant family history pertinent to the patient complaint. <Rhys Jessica APRN - Last Filed: 12/30/24 14:19> Exam Narrative: GENERAL: This is a well-nourished, well-developed adult, in no apparent distress. They are non ill-appearing, nontoxic appearing. HEAD: normocephalic, atraumatic. EYES: Sclera clear/white. Vision is grossly intact. Conjunctiva normal. Extraocular movement intact. EARS: External ears normal Hearing grossly intact. NOSE: External nose normal THROAT: Mucous membranes moist NECK: Neck supple CARDIOVASCULAR: Regular rate and rhythm RESPIRATORY: Respiratory rate normal, respiratory effort nonlabored, no respiratory distress NEURO: awake, alert, and oriented to person, place and time. There were no obvious focal neurologic abnormalities. EXTREMITIES: Right foot/ankle No obvious deformity, injury, bruising, redness. Mild swelling to the dorsal proximal surface of the foot. Normal range of motion. Normal dorsiflexion and plantar flexion. Tenderness to palpation throughout the dorsal proximal surface of the foot and ankle. Tenderness to palpation to the calcaneus. Capillary refill less than 3 seconds. Pedal Pulse 2 +palpable. Normal sensation. Neurovascular status intact distal injury. Negative Asher's test. Patient is able to wiggle her toes. BACK: Nontender without deformity. <Rhys Jessica APRN - Last Filed: 12/30/24 14:19> Course Course Emergency Course: Portions of this record may have been created with voice recognition software <Rhys Jessica APRN - Last Filed: 12/30/24 14:19> Level of Care: Express Care Visit <Rhys Jessica APRN - Last Filed: 12/30/24 14:19> Vital Signs Vital signs: Vital Signs Temperature 97.2 F L 12/30/24 12:30 Pulse Rate 64 12/30/24 12:30 Respiratory Rate 18 12/30/24 12:30 Blood Pressure 107/67 12/30/24 12:30 Pulse Oximetry 100 12/30/24 12:30 Oxygen Delivery Room Air 12/30/24 12:30 Temperature 97.2 F L 12/30/24 12:30 Pulse Rate 64 12/30/24 12:30 Respiratory Rate 18 12/30/24 12:30 Blood Pressure 107/67 12/30/24 12:30 Pulse Oximetry 100 12/30/24 12:30 Oxygen Delivery Room Air 12/30/24 12:30 <Shivam Palafox, GENERAL HARDWARE SALESPERSON - Last Filed: 12/30/24 13:39> Vital Signs Temperature 97.2 F L 12/30/24 12:30 Pulse Rate 64 12/30/24 12:30 Respiratory Rate 18 12/30/24 12:30 Blood Pressure 107/67 12/30/24 12:30 Pulse Oximetry 100 12/30/24 12:30 Oxygen Delivery Room Air 12/30/24 12:30 Temperature 97.2 F L 12/30/24 12:30 Pulse Rate 64 12/30/24 12:30 Respiratory Rate 18 12/30/24 12:30 Blood Pressure 107/67 12/30/24 12:30 Pulse Oximetry 100 12/30/24 12:30 Oxygen Delivery Room Air 12/30/24 12:30 Reviewed <Rhys Jessica APRN - Last Filed: 12/30/24 14:19> MDM - Extremity Injury (Lower) MDM Narrative Medical decision making narrative: X-ray revealed. Report received from Rhys Jessica [facility]-patient arrived to the [facility] for imaging of right ankle and right foot. Diagnostics: X-rays are negative for any sign of fracture or malalignment. Nahid wrap was applied-patient to follow-up with licensed plumber. <Shivam Palafox APRN - Last Filed: 12/30/24 13:39> Explained to patient sedated this [facility] in [place] does not have x-ray capabilities. Offered this patient transfer to [facility] to obtain further imaging and she agreed to go. Call or to try [facility] and spoke with Shivam MARTEL was aware of this patient and accepted the patient for transfer for further imaging. X-ray revealed no evidence of a fracture or acute findings. Likely related to a strain or plantar fasciitis. Patient was given ice and an Nahid wrap at the [facility]. Results, and anticipatory guidance and ER precautions were discussed with patient with Shivam MARTEL the provider over at the [facility]. Patient is appropriate for outpatient follow-up and management. Report received from Rhys Jessica AIRCRAFT PAINTER-patient arrived to the [facility] for imaging of right ankle and right foot. Diagnostics: X-rays are negative for any sign of fracture or malalignment. Nahid wrap was applied-patient to follow-up with licensed plumber. <Rhys Jessica APRN - Last Filed: 12/30/24 14:19> Differential Diagnosis Differential diagnosis: Likely other (Ankle/foot sprain, plantar fasciitis, ankle/foot fracture) <Rhys Jessica APRN - Last Filed: 12/30/24 14:19> Imaging Data Radiologist's impression: ITS Impressions Ankle X-Ray 12/30/24 13:29 IMPRESSION: 1. No osseous abnormality to right foot or ankle. Foot X-Ray 12/30/24 13:29 IMPRESSION: 1. No osseous abnormality to right foot or ankle. <Rhys Jessica APRN - Last Filed: 12/30/24 14:19> Critical Care Time Critical Care Time Critical Care Time: No <Rhys Jessica APRN - Last Filed: 12/30/24 14:19> Discharge Plan Discharge Clinical Impression: Acute right ankle pain, Acute pain of right foot <Shivam Palafox APRN - Last Filed: 12/30/24 13:39> Patient Disposition: Home <Shivam Palafox APRN - Last Filed: 12/30/24 13:39> Condition: Stable <Shivam Palafox APRN - Last Filed: 12/30/24 13:39> Instructions: Plantar Fasciitis (ED), Ankle Strain (ED) <Shivam Palafox APRN - Last Filed: 12/30/24 13:39> Additional Instructions: Rest, ice, elevate, and wear nahid wrap as directed Tylenol/motrin for pain as discussed. Gradually bear weight No running or sports until healed. Follow up with your PCP if symptoms persist more than 1 week. <Shivam Palafox APRN - Last Filed: 12/30/24 13:39> Patient Language: Lithuanian <Shivam Palafox APRN - Last Filed: 12/30/24 13:39> Prescriptions: No Action sertraline 100 mg tablet sertraline 50 mg tablet 50 mg PO DAILY <Shivam Palafox APRN - Last Filed: 12/30/24 13:39> Follow-up/Referrals: Diogenes Lopez DPM [Physician] - Daniel Medina MD [Physician] - UNKNOWN,DOCTOR [Primary Care Provider] - <Shivam Palafox APRN - Last Filed: 12/30/24 13:39> Stand Alone Forms: Work/School Release IP <Shivam Palafox APRN - Last Filed: 12/30/24 13:39> Time of Disposition: 13:37 <Shivam Palafox APRN - Last Filed: 12/30/24 13:39> 13:37 <Rhys Jessica APRN - Last Filed: 12/30/24 14:19>
== END 2024-12-30 13:33 | disposition home or self-care (01) ==
DX: M25.571 Pain in right ankle and joints of right foot (principal); M79.671 Pain in right foot; F17.290 Nicotine dependence, other tobacco product, uncomplicated; F41.9 Anxiety disorder, unspecified; F32.A Depression, unspecified
CPT/HCPCS: 73610; 73630; 99213; G0463

== ENCOUNTER 2025-03-19 20:23 | Emergency (ER) | payer OTHER, SELFPAY ==
--- NOTE | ~2025-03-19 | XR_ITS ---
HISTORY: L forearm laceration COMPARISON: None TECHNIQUE: 2 views of the left forearm were performed FINDINGS: No acute or subacute fracture. Joint spaces are preserved and alignment is maintained. Soft tissues are without radiopaque foreign body or significant calcification. Soft tissue defect along the palmar surface of the forearm. Age-appropriate mineralization. IMPRESSION: No acute fracture or dislocation. Reviewed, dictated and finalized at location A.
--- OUTSIDE RECORDS SUMMARY | 2025-03-19 20:25 | XMS_ITS | Clinical Summary ---
Author Organization [facility] Address [facility] [place] [address] Care Team Providers Care Clinical Liaison Name Role Phone Unavailable Primary Care Provider [...] of 3 - 19+ 3-dose series) 12/16/2010 HPV Vaccines (1 - 3-dose SCD M series) 12/16/2018 Cervical Cancer Screening Pa p with HPV Testing (Age 30 to 64) Every 5 Years 12/16/2021 Cervical Cancer Screening with HPV 12/16/2021 COVID-19 Vaccine ( - 2023-2 5 season) 2024 Meningococcal B Vaccine Aged Out No l onger eligible based on patient's age to complete this topic Meningococcal Vaccine Aged Out No esteban nadja eligible based on patient's age to complete this topic Pneumococcal Vaccine: Pediat rics (0 to 5 Years) and At-Risk Patients (6 to 49 Years) Aged Out No longer eligible b ased on patient's age to complete this topic RSV Immunizations Under 20 Months Aged Out No longer eligible based on patient's age to complete this topic
--- OUTSIDE RECORDS SUMMARY | 2025-03-19 20:25 | XMS_ITS | Clinical Summary ---
Author Organization [facility] Address [address] [place] [address] Care Team Providers Care Contact Centre Supervisor Name Role Phone Unavailable Primary Care Provider Unavailabl e Source Comments [facility],non-owned Affiliates and Associated Physician Practices is amultiple site organization consisting of ambulatory clinics and hospital sitesin [place], [place], [place] and [place]. This disclosure is being madepursuant to the Care Everywhere program and may not contain all information available regarding this patient. 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 Gender Identity Not on file Sexual Orientation Not on file Plan of Treatment Health Maintenance Due Date Last Done Comments HIV SCREENING 12/16/2006 HEPATITIS C SCREENING 12/12/2009 DTAP/TDAP/TD VACCINES (1 - Tdap) 12/16/2010 HEPATITIS B VACCINE (1 of 3 - 19+ 3-dose series) 12/16/2010 PAP SMEAR 12/16/2012 HPV VACCINE (1 - 3-dose SCDM series) 12/16/2018 COVID-19 VACCINE (1 - 2023-2 5 season) 2024 DEPRESSION SCREENING 08/12/2024 INFLUENZA VACCINE (#1) 2025 ZOSTER VACCINE (1 of 2) 12/16/2041 HIB VACCINE Aged Out No longer eligi ble based on patient's age to complete this topic MENINGOCOCCAL (Group B) VACC INE SHARED DECISION-MAKING Aged Out No longer eligibl e based on patient's age to complete this topic MENINGOCOCCAL GROUPS A/C/Y/W VACCINE Aged Out No longer eligible b ased on patient's age to complete this topic PNEUMOCOCCAL VACCINE Aged Out No long er eligible based on patient's age to complete this topic Insurance [facility]
--- OUTSIDE RECORDS SUMMARY | 2025-03-19 20:25 | XMS_ITS | Clinical Summary ---
Author Organization [address] Address [address] [address] Care Team Providers Care Chiropractic Physician Name Role Phone Pamella Harmon Primary Care Provider [phone] Klever Washington MD Unavailable [phone] Allergies No known active allergies Medications levonorgestreL (Mirena) IUD Mirena 20 mcg/24 hours (7 yrs) 52 mg intrauterine device Take 1 device by intrauterine route. Active sertraline (ZOLOFT) 100 mg tabletIndicatio ns:Mild episode of recurrent major depressive disorder,ANN (generalized anxiety disorder) Take 1 tablet (100 mg total) by mouth daily 90 tablet 3 5 Active cyclobenzaprine (FLEXERIL) 5 mg tabletIndicatio ns:Chronic right shoulder pain Take 1-2 tablets (5-10 mg total) by mouth 3 (three) times a day as needed for muscle spasms 30 tablet 5 Active ibuprofen (ADVIL,MOTRIN) 800 mg tablet Take 1 tablet (800 mg total) by mouth every 8 (eight) hours as needed for pain (pain) 30 tablet 5 Active Active Problems Problem Noted Date Diagnosed Date Mild episode of recurrent major depressive disor florencio 06/20/2020 Assessment & Plan (08/31/2024 9:34 AM FISHER CLAM): Chronic and uncontrolled. I offered to increase [...] offered to place a referral to the [facility] protective services social worker to provide assistance with finances and referrals. Patient declined. Assessment & Plan (09/03/2023 9:44 AM FISHER CLAM): Chronic and controlled. Continue Zoloft 100 mg daily. Follow-up as needed. Assessment & Plan (07/17/2022 8:00 AM FISHER CLAM): Chronic. Her PHQ-9 score is elevated. I [...] symptoms. Assessment & Plan (06/20/2020 11:39 AM FISHER CLAM): Chronic and well controlled on Zoloft 100 mg daily. Patient will let me know when she needs a refill. Continue current management. ANN (generalized anxiety disorder) 06/20/2020 Assessment & Plan (08/31/2024 8:46 AM FISHER CLAM): See above. Assessment & Plan (09/03/2023 9:43 AM FISHER CLAM): See above. Assessment & Plan (07/17/2022 7:00 AM FISHER CLAM): See above. Assessment & Plan (11/08/2021 7:33 AM CDT): See above. Assessment & Plan (06/20/2020 11:39 AM FISHER CLAM): See above. 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 Will request her Pap from [employer] F[employer] MANAGER. See me annually for routine physicals. Assessment & Plan (09/03/2023 9:44 AM FISHER CLAM): Health Maintenance: -PCV20: N/A -Tdap vaccine: 2019 [...] further management. Continue Flexeril as needed. Continue zofn-gsh-lkncspo medications as needed. Patient voiced agreement with this plan. All questions answered. Cervical intraepithelial neoplasia grade 2 06/20/2020 06/20/2020 BMI 27.0-27.9,adult 06/20/2020 11/09/19 Assessment & Plan (06/20/2020 11:35 AM FISHER CLAM): Reviewed BMI Focus on healthy diet options Work on healthy changes Encounters Date Type Department Care Team Description 01/05/2025 3:00 PM CDT Telemedicine [facility] Family Medicine [address] [place] [phone] Pamella Harmon PA Pain and swelling of right ankle (Primary Dx); Right foot pain 01/05/2025 Telephone [facility] Medicine [address] [place] [phone] Pamella Harmon PA Symptom Based Call from Last 3 Months Immunizations Immunization Administration Dates Next Due Influenza LAIV (Nasal) [...] Hypertension Father Rodrigo Guzmans Tuberculosis Father Rodrigo Low COPD Maternal Grandfather Amy Roosevans Early Maternal Grandfather Amy Roosevans Hearing loss Maternal Grandfather Mckean Roosevans Heart attack Maternal Grandfather Mckean Roosevans Heart disease Maternal Grandfather Amy Roosevans Rashes / Skin problems Maternal Grandfather Mckean R oosevans Diabetes Maternal Grandmother Haylee Roosevans [...] staff should administer the PHQ-9) 4 08/31/2024 PHQ-9 Answer Date Recorded PHQ-9 Total Score 23 08/31/2024 Personal Safety Answer Date Recorded Have you ever been in or are you currently in a harmful physical or emotional relationship or is someone making you feel afraid or unsafe? Denies 11/07/2022 Comments No Sex and Gender Information Value Date Recorded Sex Assigned at Not on file Legal Sex Female 1:48 AM FISHER CLAM Gender Identity Female 06/19/2020 11:45 AM FISHER CLAM Sexual Orientation Straight 06/19/2020 11 :45 AM FISHER CLAM Obstetrics History Last Filed Vital Signs Vital Sign Reading Time Taken Comments Blood Pressure 102/68 08/31/2024 8:54 AM FISHER CLAM Pulse 96 08/31/2024 8:54 AM FISHER CLAM Temperature 36.9 C (98.4 F) 08/31/2024 8:54 AM FISHER CLAM Respiratory Rate 18 08/31/2024 8:54 AM FISHER CLAM Oxygen Saturation 99% 08/31/2024 8:54 AM FISHER CLAM Inhaled Oxygen Concentration - - Weight 63.3 kg (139 lb 8 oz) 08/31/2024 8:54 AM FISHER CLAM Height 157.5 cm (5' 2) 08/31/2024 8:54 AM FISHER CLAM Body Mass Index 25.51 08/31/2024 8:54 AM FISHER CLAM Plan of Treatment Health Maintenance Due Date Last Done Comments Hepatitis C Screening 1991 Hepatitis B Screening 12/16/2009 HPV Vaccines (1 - 3-dose SCDM series) 12/16/2018 Cervical Cancer Screening 03/11/2023 03/11/2022 Influenza Vaccine (#1) 2025 7, 04/01/2014, 05/04/2013, Additional history exists Depression Screening 08/31/2025 08/31/2024, 08/31/2024, 08/27/2023, Additional history exists Regular Well Visit/Exam 18-64 08/31/2025 08/31/2024, 09/03/2023, 11/08/2021, Additional history exists DTaP/Tdap/Td Vaccine (3 - Td or Tdap) 02/24/2029 02/24/2019, 09/25/2017 Pneumococcal vaccine <65 Aged Out No longer [...] Most Recently Relevant to Health Maintenance Insurance [facility] Care Teams Chiropractic Physician Relationship Specialty Start Date End Date Pamella Harmon PA [address] [place] [address] PCP - General Family Medicine 06/13/20 Klever Washington MD [address] [place] [address] Consulting Physician Family Medicine 06/13/20
--- OUTSIDE RECORDS SUMMARY | 2025-03-19 20:25 | XMS_ITS | Patient Health Record ---
Author Organization [facility] Address [address] [facility] [address] [place] [address] Care Team Providers Care Product Manager Financial Services Name Role Phone Jacob Shipley Unavailable [phone] Reason For Referral No Information Medications Medication SIG (Take, Route, Frequency, Duration) Notes Start Date End Date Status Omeprazole 20 MG Oral Act ruy ProAir HFA 108 (90 Base) MCG/ACT Inhalation Active Sertraline HCl 100 MG Oral Active ALPRAZolam 0.5 MG Oral Ac tive Plan Of Treatment No Information
[2025-03-19 20:26] VITALS: BP 122/99; PULSE 126; RESP 16; TEMP 36.8; O2SAT 100
[2025-03-19] MEDS: KETOROLAC (*BKC) 60 MG/2 ML VIAL IM (20:45)
[2025-03-19] MEDS: LIDO 1%/EPINEPHRINE 1:100,000 20 ML VIAL 10 ML INFILTRATE (20:45)
[2025-03-19] MEDS: TETANUS,DIPHTHERIA,AC PERTUSSIS ADULT (0.5 ML) BOOSTRIX IM (20:46)
--- NOTE | 2025-03-19 20:47 | ED_ITS ---
HPI - Wound/Laceration General Chief Complaint: Wound/Laceration <Gin Morris APRN - Last Filed: 03/20/25 03:22> Stated Complaint: lac with glass <Gin Morris APRN - Last Filed: 03/20/25 03:22> Time Seen by Provider: 03/19/25 20:31 <Gin Morris APRN - Last Filed: 03/20/25 03:22> History of Present Illness HPI narrative: Patient is a 34-year-old female presents to the ER after sustaining a left forearm laceration. She reports she was cleaning glass from a broken window when she sustained this laceration. Patient endorses full range of motion in her hand. She reports her last tetanus shot was approximately 6 years ago. Patient reports this laceration was not intentional. She denies any decreased range of motion to her wrist or fingers. Patient denies any medical history relevant to this ER visit. She is unsure when she had her last tetanus vaccine. <Gin Morris APRN - Last Filed: 03/20/25 03:22> Related Data Home Medications: Home Medications ?Medication ?Instructions ?Recorded ?Confirmed ?Last Taken ?Type sertraline 100 mg tablet mg 12/30/24 03/08/25 Unknown History <Gin Morris APRN - Last Filed: 03/20/25 03:22> Allergies/Adverse Reactions: Allergies Allergy/AdvReac Type Severity Reaction Status Date / Time No Known Allergies Allergy Verified 03/08/25 13:40 <Gin Morris APRN - Last Filed: 03/20/25 03:22> Review of Systems Review of Systems: All systems reviewed & are unremarkable except as noted in HPI and below <Gin Morris APRN - Last Filed: 03/20/25 03:22> PMFSH Past Medical History Medical History: Medical History Encounter for screening examination for sexually transmitted disease Mastodynia Bilateral breast lump Irregular periods ASCUS with positive high risk HPV cervical HPV in female Abnormal Pap smear of cervix 01/13/2009-lgsil (+) hpv, 01/26/2010-LGSIL+HPV, 08/30/2010 Lgsil +hpv,10/22/2011- LGSIL, 09/24/2012 HGSIL Moderate dyplasia+hpv Overactive bladder Migraines Anxiety and depression History of depression History of anxiety <Gin Morris APRN - Last Filed: 03/20/25 03:22> Surgical History Surgical History: Surgical History History of gynecological procedure (03/27/23) cauterization of cervical lesion History of colposcopy (04/04/22) Hx of cholecystectomy History of appendectomy History of colposcopy multiple HGSIL/ Mild dysplasia IVY 1 H/O LEEP (03/14/23) LEEP, dx laparoscopy-pelvic pain - Hsgil IVY 3 - HGSIL IVY 2 <Gin Morris APRN - Last Filed: 03/20/25 03:22> Family History Family History: Family History Mother Hypertension Grandparent Family history of congestive heart failure Diabetes mellitus Father Acute myocardial infarction <Gin Morris APRN - Last Filed: 03/20/25 03:22> Social History Social History: Social History Smoking status: Current every day smoker Tobacco type: e-cigarettes/vaping Second hand tobacco smoke exposure: Yes Alcohol intake: current Drinks per week: 10 Substance use: current Substance use type: marijuana Other substance usage details: daily occassional Do You Feel Safe in your Home?: Yes Lack of Transportation: No Lack of Food: Never True Current Housing: I Have Housing Concerned About Future Housing: No Difficulty Paying Gas/Electric Bills: YES Difficulty Paying for Meds: No Currently Unemployed: No Education: Associate Degree Difficulty w/ Childcare or Family Care: No Living arrangements: with family Additional living arrangements comments: lives with CHILDREN Occupation/Education: occupation Additional occupation/education comments: [employer] Gender identity (if verbalized by the patient): Female Sexual Orientation (if Verbalized by the Patient): Straight or Heterosexual Spiritual care concerns: No <Gin Morris APRN - Last Filed: 03/20/25 03:22> Exam Narrative: GENERAL: Well appearing, well-nourished, non-toxic, in no acute distress. HEAD: Normocephalic, atraumatic. NECK: Supple. No adenopathy, no masses. RESPIRATORY: Airway patent, respirations nonlabored. Clear to auscultation bilaterally, no rales, rhonchi, wheezing. CARDIOVASCULAR: Regular rate and rhythm without murmurs, rubs, or gallops. Peripheral pulses 2+ and equal bilaterally. ABDOMINAL: Soft, nontender, nondistended, no hepatosplenomegaly. Normoactive BS. MUSCULOSKELETAL: Moves all extremities. Strength/ROM intact without gross deformities. Negative Sanjeev test L wrist. Intact active and passive range of motion of the L wrist, thumb, and all digits, normal strength of thumb and finger movements with and without resistance. Negative swelling along the L forearm and wrist. Positive sensation, blood flow, and nerve function to all digits on L hand. SKIN: Warm, dry, normal color. No rashes. Approximately 3 inch linear, horizontal laceration volar side of L forearm, visible subcutaneous tissue and one visible tendon-no visible fraying NEURO: A&O X3. Speech clear. Cranial nerves II-XII intact. No ataxic movements. PSYCHIATRIC: Appropriate mood and affect. Normal interaction. <Gin Morris APRN - Last Filed: 03/20/25 03:22> Course TURFGRASS MANAGEMENT PROFESSOR/PA Physician Supervision For this patient encounter, I reviewed the TURFGRASS MANAGEMENT PROFESSOR or PA documentation, treatment plan, and medical decision making; and I had eyud-bm-[id number] time with this patient. I performed a laceration repair. <Christ Weinstein MD - Last Filed: 03/20/25 11:29> Vital Signs Vital signs: Vital Signs Temperature 98.2 F 03/19/25 20:26 Pulse Rate 126 H 03/19/25 20:26 Respiratory Rate 16 03/19/25 20:26 Blood Pressure 122/99 H 03/19/25 20:26 Pulse Oximetry 100 03/19/25 20:26 Oxygen Delivery Room Air 03/19/25 20:26 Temperature 98.4 F 03/19/25 22:29 Pulse Rate 67 03/19/25 22:29 Respiratory Rate 18 03/19/25 22:29 Blood Pressure 110/63 03/19/25 22:29 Pulse Oximetry 99 03/19/25 22:29 Oxygen Delivery Room Air 03/19/25 20:26 <Gin Morris APRN - Last Filed: 03/20/25 03:22> Vital Signs Temperature 98.2 F 03/19/25 20:26 Pulse Rate 126 H 03/19/25 20:26 Respiratory Rate 16 03/19/25 20:26 Blood Pressure 122/99 H 03/19/25 20:26 Pulse Oximetry 100 03/19/25 20:26 Oxygen Delivery Room Air 03/19/25 20:26 Temperature 98.4 F 03/19/25 22:29 Pulse Rate 67 03/19/25 22:29 Respiratory Rate 18 03/19/25 22:29 Blood Pressure 110/63 03/19/25 22:29 Pulse Oximetry 99 03/19/25 22:29 Oxygen Delivery Room Air 03/19/25 20:26 <Christ Weinstein MD - Last Filed: 03/20/25 11:29> Procedures Laceration Laceration 1: Date: 03/19/25 <Christ Weinstein MD - Last Filed: 03/20/25 11:29> Time: 21:05 <Christ Weinstein MD - Last Filed: 03/20/25 11:29> Site: upper extremity <Christ Weinstein MD - Last Filed: 03/20/25 11:29> Side (If applicable): left <Christ Weinstein MD - Last Filed: 03/20/25 11:29> Size (cm): 15 <Christ Weinstein MD - Last Filed: 03/20/25 11:29> Description: linear <Christ Weinstein MD - Last Filed: 03/20/25 11:29> Depth: involves muscle layer and involves tendon <Christ Weinstein MD - Last Filed: 03/20/25 11:29> Local Anesthetic: lidocaine 1% and with epi <Christ Weinstein MD - Last Filed: 03/20/25 11:29> Amount of anesthesia used (mL): 5 <Christ Weinstein MD - Last Filed: 03/20/25 11:29> Pre-repair: wound explored, irrigated and irrigated extensively <Christ Weinstein MD - Last Filed: 03/20/25 11:29> ====== Skin Level ======: Skin layer closed with: nylon <Christ Weinstein MD - Last Filed: 03/20/25 11:29> Size (cm): 4-0 <Christ Weinstein MD - Last Filed: 03/20/25 11:29> Number of sutures: 11 <Christ Weinstein MD - Last Filed: 03/20/25 11:29> Technique: simple, interrupted <Christ Weinstein MD - Last Filed: 03/20/25 11:29> ====== Subcutaneous Layer ======: ====== Muscle Layer ======: ====== Tendon Layer ======: MDM - Wound/Laceration MDM Narrative Medical decision making narrative: Patient is a 34-year-old female presents to the ER after sustaining a left forearm laceration. She reports she was cleaning glass from a broken window when she sustained this laceration. Patient endorses full range of motion in her hand. She reports her last tetanus shot was approximately 6 years ago. Patient reports this laceration was not intentional. She denies any decreased range of motion to her wrist or fingers. Patient denies any medical history relevant to this ER visit. She is unsure when she had her last tetanus vaccine. Labs Ordered: None necessary Imaging Ordered: Left forearm x-ray Medications Ordered: Tdap IM, Toradol IM, lidocaine with epinephrine infiltrate, ceftriaxone 1 g IM, Economy p.o. Results: Pt's x-ray indicates No acute or subacute fracture. Joint spaces are preserved and alignment is maintained. Soft tissues are without radiopaque foreign body or significant calcification. Soft tissue defect along the palmar surface of the forearm. Age-appropriate mineralization. Diagnosis: Left forearm laceration Consults: 2044- Spoke with orthopedic surgery, Dr. Early. He requested confirmation that pt has full ROM and sensation in her left arm, hand and digits. Dr. Early requests pt have an x-ray of her L forearm. He requests patient receive a dose of IM or IV antibiotics prior to discharge. She should also be sent home with oral antibiotics. He would like patient to follow-up with him on Saturday morning for an outpatient appointment. Patient Education/Shared MDM: Results of imaging shared with patient. She endorses mild improvement of pain symptoms following pain medication administration. Patient's L arm was placed in a volar OCL splint following laceration repair. She was given a dose of ceftriaxone 1 g IM here in the ER. Patient will be discharged home with a prescription for doxycycline x 7 days. Patient strongly advised to call Dr. Early's office on Saturday. She asked if a Saturday morning follow-up would be reasonable instead. Pt advised to call Dr. Early's office on Saturday and they can provide her with answers to her questi ons. She will be discharged home with a prescription for Economy for pain control. Pt advised to leave her splint on until she is evaluated by orthopedic surgery. Strict return precautions provided. Patient verbalized understanding and is in agreement with plan. Vital signs stable at time of discharge. All questions answered. <Gin Morris APRN - Last Filed: 03/20/25 03:22> Differential Diagnosis Differential diagnosis: Likely laceration, abrasion and avulsion of skin <Gin Morris APRN - Last Filed: 03/20/25 03:22> Imaging Data Attestation: I personally reviewed and interpreted this imaging study as follows: <Gin Morris APRN - Last Filed: 03/20/25 03:22> Radiologist's impression: Impressions Forearm X-Ray 03/19/25 22:19 IMPRESSION: No acute fracture or dislocation. <Gin Morris APRN - Last Filed: 03/20/25 03:22> Discharge Plan Discharge Clinical Impression: Laceration of forearm, left, with tendon, Left forearm pain <Gin Morris APRN - Last Filed: 03/20/25 03:22> Patient Disposition: Home <Gin Morris APRN - Last Filed: 03/20/25 03:22> Condition: Guarded Prognosis <Gin Morris APRN - Last Filed: 03/20/25 03:22> Instructions: Antibiotic Form, Laceration (ED) <Gin Morris APRN - Last Filed: 03/20/25 03:22> Additional Instructions: Please return to the ER with any worsening symptoms, including sudden onset pain, loss of sensation to fingertips, or development of fever. Follow-up with Orthopedic surgery on Saturday as plan. Please call orthopedic surgery 1st thing Saturday morning. Take all medications as prescribed, including regularly scheduled medications. You may use Economy sparingly for pain control. Please complete your full dose of antibiotics. <Gin Morris APRN - Last Filed: 03/20/25 03:22> Patient Language: Irish <Gin Morris APRN - Last Filed: 03/20/25 03:22> Prescriptions: New hydrocodone-acetaminophen 5-325 mg tablet 1 tablet PO Q6H PRN (Reason: pain) Qty: 10 0RF doxycycline monohydrate 100 mg tablet 100 mg PO BID Qty: 20 0RF No Action sertraline 100 mg tablet <Gin Morris APRN - Last Filed: 03/20/25 03:22> Follow-up/Referrals: PHYSICIAN NOT ON STAFF,NONSTAFF [Primary Care Provider] - Tee Early MD [Physician] - (orthopedic surgery) <Gin Morris APRN - Last Filed: 03/20/25 03:22> Stand Alone Forms: Work/School Release IP <Gin Morris APRN - Last Filed: 03/20/25 03:22> Time of Disposition: 22:15 <Gin Morris APRN - Last Filed: 03/20/25 03:22> 22:15 <Christ Weinstein MD - Last Filed: 03/20/25 11:29>
--- OUTSIDE RECORDS SUMMARY | 2025-03-19 21:22 | XMS_ITS | Clinical Summary ---
Author Organization [facility] Address [address] [place] [address] Care Team Providers Care Timber Framer Helper Name Role Phone Unavailable Primary Care Provider Unavailabl e Source Comments [facility],non-owned Affiliates and Associated Physician Practices is amultiple site organization consisting of ambulatory clinics and hospital sitesin [place], [place], [place] and [place]. This disclosure is being madepursuant to the Care Everywhere program and may not contain all information available regarding this patient. 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
--- OUTSIDE RECORDS SUMMARY | 2025-03-19 21:22 | XMS_ITS | Clinical Summary ---
Author Organization [facility] Address [facility] [address] [place] [address] Care Team Providers Care Precision Farming Specialist Name Role Phone Unavailable Primary Care Provider [...]
--- OUTSIDE RECORDS SUMMARY | 2025-03-19 21:22 | XMS_ITS | Clinical Summary ---
Author Organization [address] Address [address] [address] Care Team Providers Care Manufacturer Representative Name Role Phone Pamella Harmon Primary Care Provider [phone] Klever Washington MD Unavailable [phone] Allergies No known active allergies Medications levonorgestreL [...] 06/20/2020 Assessment & Plan (08/31/2024 9:34 AM LABEL PRESS OPERATOR): Chronic and uncontrolled. I offered to increase [...] offered to place a referral to the [facility] social service assistant to provide assistance with finances and referrals. Patient declined. Assessment & Plan (09/03/2023 9:44 AM LABEL PRESS OPERATOR): Chronic and controlled. Continue Zoloft 100 mg daily. Follow-up as needed. Assessment & Plan (07/17/2022 8:00 AM LABEL PRESS OPERATOR): Chronic. Her PHQ-9 score is elevated. I [...] symptoms. Assessment & Plan (06/20/2020 11:39 AM LABEL PRESS OPERATOR): Chronic and well controlled on Zoloft 100 mg daily. Patient will let me know when she needs a refill. Continue current management. ANN (generalized anxiety disorder) 06/20/2020 Assessment & Plan (08/31/2024 8:46 AM LABEL PRESS OPERATOR): See above. Assessment & Plan (09/03/2023 9:43 AM LABEL PRESS OPERATOR): See above. Assessment & Plan (07/17/2022 7:00 AM LABEL PRESS OPERATOR): See above. Assessment & Plan (11/08/2021 7:33 AM CDT): See above. Assessment & Plan (06/20/2020 11:39 AM LABEL PRESS OPERATOR): See above. Routine adult health maintenance 06/17/2020 Overview (08/31/2024): Health Maintenance: -PCV20: N/A -Tdap vaccine: 2019 -Influenza vaccine: due -Shingles vaccine: N/A -Colonoscopy: N/A -Last WWE: UTD per patient, with ED TRANSPORTER -Last Mammogram: N/A -Last DEXA: N/A -Last eye exam: N/A -Last MHA: N/A Assessment & Plan (08/31/2024 9:33 AM LABEL PRESS OPERATOR): Health Maintenance: -PCV20: N/A -Tdap vaccine: 2019 -Influenza vaccine: due -Shingles vaccine: N/A -Colonoscopy: N/A -Last WWE: UTD per patient, with ED TRANSPORTER -Last Mammogram: N/A -Last DEXA: N/A -Last eye exam: N/A -Last MHA: N/A Recommend annual flu shots. Will request her Pap from ED TRANSPORTER. See me annually for routine physicals. Assessment & Plan (09/03/2023 9:44 AM LABEL PRESS OPERATOR): Health Maintenance: -PCV20: N/A -Tdap vaccine: 2019 [...] further management. Continue Flexeril as needed. Continue bcfk-urr-cunimmv medications as needed. Patient voiced agreement with this plan. All questions answered. Cervical intraepithelial neoplasia grade 2 06/20/2020 06/20/2020 BMI 27.0-27.9,adult 06/20/2020 11/09/19 Assessment & Plan (06/20/2020 11:35 AM LABEL PRESS OPERATOR): Reviewed BMI Focus on healthy diet options Work on healthy changes Encounters Date Type Department Care Team Description 01/05/2025 3:00 PM CDT Telemedicine [facility] [address] [place] [phone] Pamella Harmon PA Pain and swelling of right ankle (Primary Dx); Right foot pain 01/05/2025 Telephone [facility] [address] [place] [phone] Pamella Harmon PA Symptom Based Call [...] Grandfather Amy Roosevans Hearing loss Maternal Grandfather Tillman Roosevans Heart attack Maternal Grandfather Tillman Roosevans Heart disease Maternal Grandfather Amy Roosevans Rashes / Skin problems Maternal Grandfather Tillman R oosevans Diabetes Maternal Grandmother Haylee Roosevans [...] on file Legal Sex Female 1:48 AM LABEL PRESS OPERATOR Gender Identity Female 06/19/2020 11:45 AM LABEL PRESS OPERATOR Sexual Orientation Straight 06/19/2020 11 :45 AM LABEL PRESS OPERATOR Obstetrics History Last Filed Vital Signs Vital Sign Reading Time Taken Comments Blood Pressure 102/68 08/31/2024 8:54 AM LABEL PRESS OPERATOR Pulse 96 08/31/2024 8:54 AM LABEL PRESS OPERATOR Temperature 36.9 C (98.4 F) 08/31/2024 8:54 AM LABEL PRESS OPERATOR Respiratory Rate 18 08/31/2024 8:54 AM LABEL PRESS OPERATOR Oxygen Saturation 99% 08/31/2024 8:54 AM LABEL PRESS OPERATOR Inhaled Oxygen Concentration - - Weight 63.3 kg (139 lb 8 oz) 08/31/2024 8:54 AM LABEL PRESS OPERATOR Height 157.5 cm (5' 2) 08/31/2024 8:54 AM LABEL PRESS OPERATOR Body Mass Index 25.51 08/31/2024 8:54 AM LABEL PRESS OPERATOR Plan of Treatment Health Maintenance Due Date [...] Most Recently Relevant to Health Maintenance Insurance [facility] Care Teams Manufacturer Representative Relationship Specialty Start Date End Date Pamella Harmon PA [address] [place] [address] PCP - General Family Medicine 06/13/20 Klever Washington MD [address] [place] [address] Consulting Physician Family Medicine 06/13/20
[2025-03-19] MEDS: cefTRIAXone 1 GM VIAL IM (21:34)
[2025-03-19] MEDS: HYDROcodone/acetaminophen (*CRX) 5-325 MG TABLET 1 TAB PO (22:24)
[2025-03-19 22:29] VITALS: BP 110/63; PULSE 67; RESP 18; TEMP 36.9; O2SAT 99
== END 2025-03-19 22:30 | disposition home or self-care (01) ==
PROVIDERS: Emergency Provider Registered Nurse
DX: S51.812A Laceration without foreign body of left forearm, initial encounter (principal); S56.922A Laceration of unspecified muscles, fascia and tendons at forearm level, left arm, initial encounter; W25.XXXA Contact with sharp glass, initial encounter; F41.8 Other specified anxiety disorders; F17.290 Nicotine dependence, other tobacco product, uncomplicated; Z23 Encounter for immunization
CPT/HCPCS: 12005; 29125; 73090; 90471; 90715; 96372; 99284; A9270; J0696; J1885; J2004